=== PATIENT | male | born 1945 | race Caucasian/White ===

== ENCOUNTER 2016-10-02 13:08 | Inpatient (IN) | payer MEDICARE, OTHER ==
[~2016-10-02] VITALS: Ht 177.8 cm; Wt 131.4 kg
[~2016-10-02 13:08] MED LIST: /ADVA50050; /AUGM875TA; /ESOM40CA; ADV250INH INH; CIPR500T89 PO; COMBAER6 INH; HYDR-3716 PO; IBUP800T23 PO; LIPI20TA; LOSA50TA21 PO; MECL25TA2; PRAV40TA2 PO; PROV90AE; TOPI50TA; TRAM300T9 PO; XANA1TAB2 PO
[2016-10-02] MEDS ORDERED: PHENYLEPHRINE 0.25% NASAL SPR 15 ML As Ordered ONE (13:33)
[2016-10-02 15:19] LABS: BASO % 0.5 % (0.0-1.0); EOS % 0.8 % (0.0-3.0); LARGE UNSTAINED CELL # 0.2 K/mm3 (0.0-0.4); LARGE UNSTAINED CELL % 2.4 % (0.0-4.0); LYMPH # 1.7 K/mm3 (1.5-4.5); LYMPH % 24.6 % (24.0-44.0); MEAN CORPUSCULAR HEMOGLOBIN 26.2 pg (27.0-33.0); MEAN CORPUSCULAR VOLUME 82.1 fl (80.0-96.0); MONO # 0.4 K/mm3 (0.0-0.8); MONO % 5.9 % (0.0-5.0); NEUTROPHILS # 4.6 K/mm3 (1.8-7.7); NEUTROPHILS % 65.8 % (36.0-66.0); PLATELET COUNT, AUTOMATED 117 k/mm3 (150-450); RED CELL DISTRIBUTION WIDTH 13.2 % (11.5-14.5)
[2016-10-02] MEDS ORDERED: AUGMENTIN 875 MG TAB As Ordered ONE (16:05)
[2016-10-02] MEDS ORDERED: CEPHALEXIN 250 MG CAP As Ordered ONE (16:05)
[2016-10-02] MEDS ORDERED: IBUP80TA PO (16:26)
[2016-10-02 16:37] LABS: ANION GAP 9 MEQ/L (8-16); BLOOD UREA NITROGEN 19 MG/DL (7-18); CALCIUM LEVEL 8.4 MG/DL (8.8-10.2); CARBON DIOXIDE LEVEL 26 MEQ/L (21-32); CHLORIDE LEVEL 105 MEQ/L (98-107); CREATININE FOR GFR 1.06 MG/DL (0.70-1.30); GLOMERULAR FILTRATION RATE > 60.0 (>49); GLUCOSE, FASTING 122 MG/DL (80-110); POTASSIUM SERUM 4.3 MEQ/L (3.5-5.1); SODIUM LEVEL 140 MEQ/L (136-145)
[2016-10-02 17:09] VITALS: BP 126/78
[2016-10-02] MEDS ORDERED: NS 1,000 ML IV SCH (17:54)
[2016-10-02] MEDS ORDERED: ONDANSETRON 4MG/2ML VIAL (J2405) IV PRN (18:00)
[2016-10-02] MEDS ORDERED: SODIUM CHLORIDE NASAL 0.65% SPRAY BTL (OCEAN) PRN (18:00)
--- NOTE | 2016-10-02 19:58 | EDDOCDS ---
Physician Documentation [facility] Name: Ken Perez Age: 71 yrs Sex: Male : 1945 Arrival Date: 10/02/2016 Time: 13:08 Bed 5 Private MD: Fito Parson Disposition: 10/02/16 15:45 Hospitalization ordered by Hari Turcios for Inpatient Admission. Preliminary diagnosis are Epistaxis, Thrombocytopenia, unspecified. - Bed requested for 4 [place]. - Status is Inpatient Admission. kiara - Condition is Stable. - Problem is new. - Symptoms have improved. Historical: - Allergies: Topamax; Meclizine; - Home Meds: 1. Advair Diskus 250-50 mcg/dose Inhl dsdv 1 puff 2 times per day (Last dose: 09/25/2016) 2. Combivent 18-103 mcg/actuation Inhl aero as needed 3. ibuprofen 800 mg Oral tab 1 tab 3 times per day 4. losartan-hydrochlorothiazide oral 1 tab once daily (Last dose: 10/01/2016) 5. pravastatin 40 mg oral tab 1 tab once daily (Last dose: 10/01/2016) 6. Vicodin 7.5/750 Oral 1 tab as needed 7. Xanax 1 mg Oral tab 1 tab 4 times a day as needed 8. tramadol 300 mg Oral BP17 as needed (Last dose: 09/25/2016) - PMHx: Asthma; Depression; Hypercholesterolemia; Hypertension; Lupus anticoagulant; Low platelets; - PSHx: Left knee meniscus repair; Inguinal hernia repair; - Social history: Smoking status: Patient states former smoker of tobacco. No barriers to communication noted, The patient speaks fluent Iraqi. - Family history: Not pertinent. - : The pt / caregiver states he / she is not on anticoagulants. Home medication list is obtained from the patient. - Exposure Risk Screening:: None identified. Vital Signs: 10/02 13:10 BP 162 / 93; Pulse 86; Resp 18 S; Temp 96.2(T); Pulse Ox 98% on R/A; Weight 129.27 kg / gr2 284.99 lbs (R); Height 5 ft. 10 in. (177.80 cm) (R); Pain 3/10; 15:30 BP 146 / 89; Pulse 82; Resp 16; Pulse Ox 97% on R/A; jo3 18:20 BP 140 / 68; Pulse 85; Resp 16; Temp 98.0(TE); Pulse Ox 97% on R/A; Pain 0/10; dem1 19:34 BP 141 / 67; Pulse 81; Resp 18; Temp 98; Pulse Ox 97% on R/A; Pain 0/10; ld5 13:10 Body Mass Index 40.89 (129.27 kg, 177.80 cm) gr2 MDM: 13:51 IV Saline Lock ordered. fg 13:53 CBC with Diff Ordered. EDMS 14:58 [facility] Agreement was scanned into [employer] and attached to record. jp5 14:58 Financial registration complete. jp5 15:42 Cephalexin 500 mg PO once ordered. fg 15:45 BED REQUEST+ADM ordered. EDMS 16:10 Amoxicillin-Clavulanate 875 mg 1 tabs PO once ordered. jo3 16:20 Type & Screen Ordered. EDMS 16:20 Platelets Pheresis Ordered. EDMS 16:20 Basic Metabolic Profile Ordered. EDMS 17:36 ANTIBODY IDENTIFICATION Ordered. EDMS 17:59 Admission / Observation Status ordered. EDMS Administered Medications: 16:10 CANCELLED (Other Intervention Used): Amoxicillin-Clavulanate 500 mg 1 tabs PO once jo3 16:12 Drug: Cephalexin 500 mg [cephalexin 250 mg capsule (2 caps)] Route: PO; jo3 16:12 Drug: Amoxicillin-Clavulanate 1 tabs [amoxicillin 875 mg-potassium clavulanate 125 mg jo3 tablet (1 tabs)] Route: PO; Signatures: Dispatcher [employer] EDSD Jason Montague RN RN dwg Newman, Jill New, RN RN jan Helmerci, Jennifer, RN RN jo3 Price, Jennalee jp5 Beth Durant MD MD fg Andrews, Steven, RN RN sa The chart was reviewed and I authenticate all verbal orders and agree with the evaluation and treatment provided.Corrections: (The following items were deleted from the chart) 16:10 15:59 Amoxicillin-Clavulanate 500 mg 1 tabs PO once ordered. fg jo3 16:10 16:10 Amoxicillin-Clavulanate 500 mg 1 tabs PO once ordered. jo3 jo3 Attachments: 14:58 [facility] Payment Agreement jp5 MTDD
--- NOTE | 2016-10-02 19:58 | EDDOCDS ---
Nurse's Notes [facility] Name: Ken Perez Age: 71 yrs Sex: Male : 1945 Arrival Date: 10/02/2016 Time: 13:08 Bed 5 Private MD: Fito Parson Diagnosis: Epistaxis;Thrombocytopenia, unspecified Presentation: 10/02 13:15 Presenting complaint: Patient states: Nose bleed since 12 noon, no trauma. Adult Sepsis dwg Screening: The patient does not have new or worsening altered mentation. Patient's respiratory rate is less than 22. Systolic blood pressure is greater than 100. Patient has a qSOFA score of 0- Negative Sepsis Screen. Suicide/Homicide risk assessment- the patient denies having any suicidal and/or homicidal ideations and does not present with any other emotional, behavioral or mental health complaints. Status: Patient is not a vehicle service attendant or dependent. Transition of care: patient was not received from another setting of care. 13:15 Acuity: JENNIFER Level 3 dwg 13:15 Method Of Arrival: Wheelchair dw Triage Assessment: 13:20 General: Appears in no apparent distress. Pain: Denies pain. dwg Historical: - Allergies: Topamax; Meclizine; - Home Meds: 1. Advair Diskus 250-50 mcg/dose Inhl dsdv 1 puff 2 times per day (Last dose: 09/25/2016) 2. Combivent 18-103 mcg/actuation Inhl aero as needed 3. ibuprofen 800 mg Oral tab 1 tab 3 times per day 4. losartan-hydrochlorothiazide oral 1 tab once daily (Last dose: 10/01/2016) 5. pravastatin 40 mg oral tab 1 tab once daily (Last dose: 10/01/2016) 6. Vicodin 7.5/750 Oral 1 tab as needed 7. Xanax 1 mg Oral tab 1 tab 4 times a day as needed 8. tramadol 300 mg Oral BP17 as needed (Last dose: 09/25/2016) - PMHx: Asthma; Depression; Hypercholesterolemia; Hypertension; Lupus anticoagulant; Low platelets; - PSHx: Left knee meniscus repair; Inguinal hernia repair; - Social history: Smoking status: Patient states former smoker of tobacco. No barriers to communication noted, The patient speaks fluent Bengali. - Family history: Not pertinent. - : The pt / caregiver states he / she is not on anticoagulants. Home medication list is obtained from the patient. - Exposure Risk Screening:: None identified. Screenin:43 Screening information is obtained from the patient. Fall risk: No risks identified. jo3 Assistance ADL's: requires no assistance with activities of daily living. Abuse/DV Screen: The patient / caregiver reports he/she is: not in a situation that causes fear, pain or injury. Nutritional screening: No deficits noted. Advance Directives: There is no active DNR order. home support is adequate. Assessment: 13:41 General: Appears in no apparent distress, comfortable, obese, well groomed, Behavior is jo3 appropriate for age, cooperative, pleasant. Neurological: Level of Consciousness is awake, alert, Oriented to person, place, time. EENT: pt presents holding nose with large amount of paper towel. Replaced paper towel with gauze. Trickle of blood noted to left nares. Pressure applied by this expert medical writer and blood visualized at back of throat . Respiratory: Airway is patent Respiratory effort is even, unlabored. Derm: Skin is pink, warm & dry. 14:30 Reassessment: Patient appears in no apparent distress at this time. Patient states jo3 symptoms have improved. Blood visualized in throat. Appears better but not resolved. Provider notified . 15:25 Reassessment: Patient appears in no apparent distress at this time. Continued jo3 visualization of blood in throat. Awaiting disposition at this time. Aware of plan of care . 16:40 General: Appears in no apparent distress, comfortable, Behavior is appropriate for age, jo3 cooperative, pleasant. Neurological: Level of Consciousness is awake, alert, Oriented to person, place, time. EENT: Nares rocket in place to left nares. Scant blood noted when throat visualized. Pt reports that bleeding feels like it is improving. Respiratory: Airway is patent Respiratory effort is even, unlabored. Derm: Skin is pink, warm & dry. 17:40 Reassessment: Patient appears in no apparent distress at this time. Pt states that he jo3 had small amount of blood from right nares when he ambulated to bathroom. No blood noted at this time. Continuing to monitor . 19:15 General: Appears in no apparent distress, comfortable, Behavior is appropriate for age, jo3 cooperative, pleasant. General: Awaiting admission to medical floor. Aware of plan of care. Family at bedside . Neurological: Level of Consciousness is awake, alert, Oriented to person, place, time. Respiratory: Airway is patent Respiratory effort is even, unlabored. Derm: Skin is pink, warm & dry. 19:34 General: Pt resting comfortably in bed. No apparent distress. Will continue to monitor. ld5 Vital Signs: 13:10 BP 162 / 93; Pulse 86; Resp 18 S; Temp 96.2(T); Pulse Ox 98% on R/A; Weight 129.27 kg gr2 (R); Height 5 ft. 10 in. (177.80 cm) (R); Pain 3/10; 15:30 BP 146 / 89; Pulse 82; Resp 16; Pulse Ox 97% on R/A; jo3 18:20 BP 140 / 68; Pulse 85; Resp 16; Temp 98.0(TE); Pulse Ox 97% on R/A; Pain 0/10; dem1 19:34 BP 141 / 67; Pulse 81; Resp 18; Temp 98; Pulse Ox 97% on R/A; Pain 0/10; ld5 13:10 Body Mass Index 40.89 (129.27 kg, 177.80 cm) gr2 Vitals: 13:10 Log In Time: October 02, 2016 at 13:10. gr2 13:10 RN notified that patient meets Red Flag criteria. gr2 ED Course: 13:10 Patient visited by Luis Pina. gr2 13:10 Fito Parson is Private Physician. gr2 13:10 Patient moved to Waiting gr2 13:14 Patient moved to 5 gr2 13:16 Triage Initiated dwg 13:26 Patient visited by Luis Pina. gr2 13:31 Bteh Durant MD is Attending Physician. fg 13:32 Patient visited by Beth Durant MD. fg 13:43 Patient visited by Denae Stuart RN. jo3 13:43 The patient / caregiver is instructed regarding the plan of care and ED course. jo3 14:16 CBC with Diff Sent. jo3 14:18 Patient visited by Michelle Rodríguez PCA. ct3 14:58 [facility] [place] was scanned into [employer] and attached to record. jp5 15:35 Patient visited by Michelle Rodríguez PCA. ct3 15:45 Tam Hari is Hospitalizing Provider. fg 15:47 Patient visited by Denae Stuart,BRENT. jo3 15:58 Patient visited by Denae Stuart,BRENT. jo3 16:20 Inserted saline lock: 20 gauge in right forearm. Labs drawn. (by ED staff). Sent per jo3 order to lab. 16:38 Platelets Pheresis Sent. ld5 16:38 Type & Screen Sent. ld5 18:15 Patient visited by Denae Stuart,BRENT. jo3 18:20 Patient visited by Alpesh Velásquez. dem1 19:16 Patient visited by Denae Stuart RN. jo3 19:20 No procedures done that require assistance. ld5 19:21 Patient visited by Eleanor Musa,BRENT. ld5 19:36 Patient visited by Eleanor Musa,BRENT. ld5 Administered Medications: 16:10 CANCELLED (Other Intervention Used): Amoxicillin-Clavulanate 500 mg 1 tabs PO once jo3 16:12 Drug: Cephalexin 500 mg [cephalexin 250 mg capsule (2 caps)] Route: PO; jo3 16:12 Drug: Amoxicillin-Clavulanate 1 tabs [amoxicillin 875 mg-potassium clavulanate 125 mg jo3 tablet (1 tabs)] Route: PO; Order Results: Lab Order: CBC with Diff; SPEC'M 10/02/16 14:52 Test: WHITE BLOOD COUNT; Value: 7.0; Range: 4.0-10.0; Units: K/mm3; Status: F Test: RED BLOOD COUNT; Value: 4.48; Range: 4.30-6.10; Units: M/mm3; Status: F Test: HEMOGLOBIN; Value: 11.8; Range: 14.0-18.0; Abnormal: Below low normal; Units: g/dl; Status: F Test: HEMATOCRIT; Value: 36.8; Range: 42.0-52.0; Abnormal: Below low normal; Units: %; Status: F Test: MEAN CORPUSCULAR VOLUME; Value: 82.1; Range: 80.0-96.0; Units: fl; Status: F Test: MEAN CORPUSCULAR HEMOGLOBIN; Value: 26.2; Range: 27.0-33.0; Abnormal: Below low normal; Units: pg; Status: F Test: MEAN CORPUSCULAR HGB CONC; Value: 32.0; Range: 32.0-36.5; Units: g/dl; Status: F Test: RED CELL DISTRIBUTION WIDTH; Value: 13.2; Range: 11.5-14.5; Units: %; Status: F Test: PLATELET COUNT, AUTOMATED; Value: 117; Range: 150-450; Abnormal: Below low normal; Units: k/mm3; Status: F Test: NEUTROPHILS %; Value: 65.8; Range: 36.0-66.0; Units: %; Status: F Test: LYMPH %; Value: 24.6; Range: 24.0-44.0; Units: %; Status: F Test: MONO %; Value: 5.9; Range: 0.0-5.0; Abnormal: Above high normal; Units: %; Status: F Test: EOS %; Value: 0.8; Range: 0.0-3.0; Units: %; Status: F Test: BASO %; Value: 0.5; Range: 0.0-1.0; Units: %; Status: F Test: LARGE UNSTAINED CELL %; Value: 2.4; Range: 0.0-4.0; Units: %; Status: F Test: NEUTROPHILS #; Value: 4.6; Range: 1.8-7.7; Units: K/mm3; Status: F Test: LYMPH #; Value: 1.7; Range: 1.5-4.5; Units: K/mm3; Status: F Test: MONO #; Value: 0.4; Range: 0.0-0.8; Units: K/mm3; Status: F Test: EOS #; Value: 0.0; Range: 0.0-0.50; Units: K/mm3; Status: F Test: BASO #; Value: 0.0; Range: 0.0-0.2; Units: K/mm3; Status: F Test: LARGE UNSTAINED CELL #; Value: 0.2; Range: 0.0-0.4; Units: K/mm3; Status: F Lab Order: Type & Screen; SPEC'M 10/02/16 16:36 Test: BLOOD TYPE; Value: O POS; Status: F Test: AB SCREEN (INDIRECT JOLIE)VIS; Value: POSITIVE; Status: F Test: AB SCREEN MAN TUBE; Value: NEGATIVE; Status: F Lab Order: Basic Metabolic Profile; SPEC'M 10/02/16 14:52 Test: GLUCOSE, FASTING; Value: 122; Range: 80-110; Abnormal: Above high normal; Units: MG/DL; Status: F Test: BLOOD UREA NITROGEN; Value: 19; Range: 7-18; Abnormal: Above high normal; Units: MG/DL; Status: F Test: CREATININE FOR GFR; Value: 1.06; Range: 0.70-1.30; Units: MG/DL; Status: F Test: GLOMERULAR FILTRATION RATE; Value: > 60.0; Range: >49; Status: F Test: SODIUM LEVEL; Value: 140; Range: 136-145; Units: MEQ/L; Status: F Test: POTASSIUM SERUM; Value: 4.3; Range: 3.5-5.1; Units: MEQ/L; Status: F Test: CHLORIDE LEVEL; Value: 105; Range: 98-107; Units: MEQ/L; Status: F Test: CARBON DIOXIDE LEVEL; Value: 26; Range: 21-32; Units: MEQ/L; Status: F Test: ANION GAP; Value: 9; Range: 8-16; Units: MEQ/L; Status: F Test: CALCIUM LEVEL; Value: 8.4; Range: 8.8-10.2; Abnormal: Below low normal; Units: MG/DL; Status: F Test Note: ; Units are mL/min/1.73 m2 Chronic Kidney Disease Staging per NKF: Stage I & II GFR >=60 Normal to Mildly Decreased Stage III GFR 30-59 Moderately Decreased Stage IV GFR 15-29 Severely Decreased Stage V GFR <15 Very Little GFR Left ESRD GFR <15 on METHODS TIME ANALYST Outcome: 15:45 Decision to Hospitalize by Provider. fg 19:21 No special radiology studies were completed. ld5 19:57 Patient left the ED. kiara Signatures: Jason Montague RN Tracie Spencer RN RN jan Helmerci, Jennifer, RN RN jo3 Dickerson, Laura, RN RN ld5 Michelle Rodríguez PCA ORNAMENTAL METAL FABRICATOR APPRENTICE ct3 Angelia Velásquezhilarypeter dem1 Nick Pinabeatricemaksim gr2 HalMary Beth jp5 Beth Durant MD MD fg Corrections: (The following items were deleted from the chart) 13:26 13:10 BP 162 / 93; Pulse 86bpm; Resp 18bpm; Spontaneous; Pulse Ox 98% RA; Temp 96.2F gr2 Tympanic; 129.27 kg Reported; Height 5 ft. 10 in. Reported; BMI: 40.8; Pain 3/10; gr2 15:58 15:05 Reassessment: Patient appears in no apparent distress at this time. Patient jo3 states feeling better. Patient states symptoms have improved. jo3 15:58 15:05 Reassessment: Awaiting disposition at this time. Aware of plan of care . jo3 jo3 MTDD
[2016-10-02 20:00] VITALS: BP 142/68
--- NOTE | 2016-10-02 20:55 | HPEPDOC ---
Medical History and Physical Date of Admission Oct 02, 2016 at 17:54 History and Physical PRIMARY CARE PROVIDER: ATTENDING: Rashaun Turcios MD CHIEF COMPLAINT: Epistaxis HISTORY OF PRESENT ILLNESS: This is a 63-year-old male past medical history of lupus anticoagulant, hypertension, hyperlipidemia, thrombocytopenia of unknown etiology, asthma, depression who presents with epistaxis. Patient's states that he was at his doctor's office when he started to have epistaxis from the left nausea. This started around 1:45 PM for which she decided to come to the ED. In the ED patient was noted to have recurrent epistaxis for which the left nostril was packed. The ED physician and spoken to the on-call ENT with recommendations for Augmentin, continue packing of the left nausea, rinsing of the right nostril, platelet transfusion, and they will see the patient if needed on an inpatient setting. The patient denies any use of aspirin, NSAIDs. Patient is not on any anticoagulation. Patient states he had an episode of epistaxis 3 years ago which resolved spontaneously. Has never been seen by ENT. PAST MEDICAL HISTORY: As per HPI PAST SURGICAL HISTORY: Left knee surgery, inguinal hernia repair SOCIAL HISTORY: History of tobacco abuse, however quit 14 years ago. No alcohol or illicit drug use. FAMILY HISTORY: Noncontributory ALLERGIES: Please see below. REVIEW OF SYSTEMS: HEENT: Denies sore throat/headache CARDIOVASCULAR: Denies chest pain/palpitations RESPIRATORY: No shortness of breath/cough GASTROINTESTINAL: denies nausea/vomiting GENITOURINARY: Denies dysuria/urinary urgency. MUSCULOSKELETAL: Denies myalgias/arthralgias NEUROLOGICAL: Denies any focal weakness Rest of ROS negative. HOME MEDICATIONS: Please see below. PHYSICAL EXAMINATION: Vitals: (see below) General: No acute distress, laying comfortably in bed. HEENT: Moist mucous membranes. Left nostril with packing. Right nostril with some dried blood. No active bleeding noted. Neck: No JVD or lymphadenopathy Cardiac: RRR, No murmurs Pulm: Clear to auscultation b/l. No wheezing, rhonchi Abd: NT/ND + BS Ext: No edema or cyanosis LABORATORY DATA: See below. IMAGING: MICROBIOLOGY: Please see below. ASSESSMENT/PLAN: Recurrent epistaxis- patient states she's had a prior episode 3 years ago however is never seen an ENT. The patient did have packing of the left nostril on the ED. ED physician had spoken to the on-call ENT who recommended Augmentin , platelet transfusion given the thrombocytopenia, nasal rinsing of the right nostril. Consider calling ENT for a formal inpatient consult tomorrow if the epistaxis recurs. History of lupus anticoagulant Asthma- as needed nebs Depression- continue home meds Hyperlipidemia- continue statin Hypertension- continue home meds Patient will be followed by Dr. Ricardo armenta on 10/03/16 at 7 AM. Vital Signs Blood pressure 162/93, heart rate 86, respiratory rate 16, afebrile, oxygen saturation 98% on room air Laboratory Data Labs 24H Laboratory Tests 2 10/02/16 14:52: Anion Gap 9, White Blood Count 7.0, Red Blood Count 4.48, Hemoglobin 11.8L, Hematocrit 36.8L, Mean Corpuscular Volume 82.1, Mean Corpuscular Hemoglobin 26.2L, Mean Corpuscular Hemoglobin Concent 32.0, Red Cell Distribution Width 13.2, Platelet Count 117L, Neutrophils (%) (Auto) 65.8, Lymphocytes (%) (Auto) 24.6, Monocytes (%) (Auto) 5.9H, Eosinophils (%) (Auto) 0.8, Basophils (%) (Auto ) 0.5, Neutrophils # (Auto) 4.6, Lymphocytes # (Auto) 1.7, Monocytes # (Auto) 0.4, Eosinophils # (Auto) 0.0, Basophils # (Auto) 0.0, Blood Urea Nitrogen 19H, Creatinine 1.06, Sodium Level 140, Potassium Level 4.3, Chloride Level 105, Carbon Dioxide Level 26, Calcium Level 8.4L, Glomerular Filtration Rate > 60.0, Large Unclassified Cells # 0.2, Large Unclassified Cells % 2.4 CBC/BMP Laboratory Tests 10/02/16 14:52 Calcium Level 8.4 L, Red Blood Count 4.48, Mean Corpuscular Volume 82.1, Mean Corpuscular Hemoglobin 26.2 L, Mean Corpuscular Hemoglobin Concent 32.0, Red Cell Distribution Width 13.2, Neutrophils (%) (Auto) 65.8, Lymphocytes (%) (Auto ) 24.6, Monocytes (%) (Auto) 5.9 H, Eosinophils (%) (Auto) 0.8, Basophils (%) ( Auto) 0.5, Neutrophils # (Auto) 4.6, Lymphocytes # (Auto) 1.7, Monocytes # (Auto ) 0.4, Eosinophils # (Auto) 0.0, Basophils # (Auto) 0.0 Home Medications Scheduled (Losartan Potassium/Hydroc 50-12.5 mg) 1 Tab Tab 1 TAB PO DAILY Pravastatin Sod (Pravastatin Sodium) 40 Mg Tab 40 MG PO QHS Scheduled PRN Acetaminophen/Hydrocodone (Hydrocodone/Acetaminophen 7.5-325 mg) 1 Tab Tab 1 TAB PO PRN PRN PRN PAIN Albuterol/Ipratropium (Combivent Respimat 20-100 Mcg/Act) 1 Aer Aer 1 PUFF INH PRN PRN PRN SHORTNESS OF BREATH Alprazolam (Xanax) 1 Mg Tab 1 MG PO QHS PRN PRN SLEEP CAN TAKE UP TO QID PRN Ibuprofen (Ibuprofen) 800 Mg Tab 800 MG PO TID PRN PRN PAIN Tramadol HCl (Tramadol HCl ER) 300 Mg Tab 300 MG PO PRN PRN PRN PAIN Allergies Coded Allergies: Codeine (Unverified Allergy, Unknown, HIVES, 10/02/16) Meclizine (Unverified Adverse Reaction, Intermediate, "TINGLES ALL OVER", N/V, 10/02/16) Topiramate (Unverified Adverse Reaction, Intermediate, "TINGLES ALL OVER" , 10/02/16) RASHAUN TURCIOS MD Oct 02, 2016 20:55
[2016-10-02 21:50] VITALS: BP 137/70
[2016-10-02 22:05] VITALS: BP 145/67
[2016-10-02 22:40] VITALS: BP 143/67
[2016-10-02] MEDS ORDERED: diphenhydrAMINE 50 MG CAP PO ONE (23:00)
--- NOTE | 2016-10-02 23:23 | IPNPDOC ---
Text Note Date of Service The patient was seen on 10/02/16. NOTE Subjective: Patient is a 71-year-old male who is admitted this evening with thrombocytopenia and epistaxis and was receiving platelets. I was called to the unit this evening due to patient developing a rash and hives after getting most of a unit of platelets. His nurse said that the patient got most of the unit of platelets and then developed a rash and hives over his upper body. Patient says that the hives itch. He denies having any facial swelling, difficulty swallowing , shortness of breath or difficulty breathing. Objective: Vitals: Temperature 98.2, heart rate 87, respiratory rate 20, blood pressure 143 /67, pulse ox 96% on room air Gen.: Patient awake, verbal and able to answer questions appropriately. He does not appear to be in any acute distress Lungs: Clear to auscultation bilaterally. No wheezes, rales or rhonchi Integumentary: Urticaria present over upper chest, upper back, upper extremities and face Assessment / Plan: #1: Allergic reaction / urticaria: Patient developed urticaria after receiving most of a unit of platelets. Patient is in no acute distress, not having any difficulty breathing, facial swelling. Patient will not be given remainder of the unit of platelets. Patient given 50 mg of oral Benadryl. Patient and nurse both made aware to monitor for worsening of symptoms, shortness of breath or difficulty breathing. My preceptor for this patient encounter was physically present in the building during the encounter and was fully available. As needed, all aspects of the patient interview, examination, medical decision making process, and medical care plan development were reviewed and approved by the preceptor. Preceptor is aware and concurs with the plan as stated in the body of this note and will attest to such by his/her cosignature. VS,Fishbone, I+O VS, Fishbone, I+O Laboratory Tests 10/02/16 14:52 Calcium Level 8.4 L, Red Blood Count 4.48, Mean Corpuscular Volume 82.1, Mean Corpuscular Hemoglobin 26.2 L, Mean Corpuscular Hemoglobin Concent 32.0, Red Cell Distribution Width 13.2, Neutrophils (%) (Auto) 65.8, Lymphocytes (%) (Auto ) 24.6, Monocytes (%) (Auto) 5.9 H, Eosinophils (%) (Auto) 0.8, Basophils (%) ( Auto) 0.5, Neutrophils # (Auto) 4.6, Lymphocytes # (Auto) 1.7, Monocytes # (Auto ) 0.4, Eosinophils # (Auto) 0.0, Basophils # (Auto) 0.0 Vital Signs Date Time Temp Pulse Resp B/P Pulse Ox O2 Delivery O2 Flow Rate FiO2 10/02/16 22:40 98.2 87 20 143/67 96 Room Air TIFFANIE YEBOAH DO Oct 02, 2016 23:23
[2016-10-02 23:40] VITALS: BP 145/74
[2016-10-03 00:27] LABS: MEAN CORPUSCULAR HEMOGLOBIN 26.6 pg (27.0-33.0); MEAN CORPUSCULAR HGB CONC 32.1 g/dl (32.0-36.5); MEAN CORPUSCULAR VOLUME 82.8 fl (80.0-96.0); PLATELET COUNT, AUTOMATED 138 k/mm3 (150-450); RED CELL DISTRIBUTION WIDTH 13.6 % (11.5-14.5); WHITE BLOOD COUNT 15.4 K/mm3 (4.0-10.0)
[2016-10-03] MEDS: ALPRAZolam 0.5 MG TAB PO PRN ×2 (01:03→20:42)
[2016-10-03] MEDS: PRAVASTATIN 20 MG TAB PO SCH ×2 (01:03→20:41)
[2016-10-03 01:06] LABS: BASO # 0.1 K/mm3 (0.0-0.2); BASO % 0.5 % (0.0-1.0); EOS # 0.1 K/mm3 (0.0-0.50); EOS % 0.9 % (0.0-3.0); LARGE UNSTAINED CELL # 0.3 K/mm3 (0.0-0.4); LARGE UNSTAINED CELL % 2.3 % (0.0-4.0); LYMPH # 3.4 K/mm3 (1.5-4.5); LYMPH % 24.2 % (24.0-44.0); MONO # 0.7 K/mm3 (0.0-0.8); NEUTROPHILS # 9.4 K/mm3 (1.8-7.7); NEUTROPHILS % 67.2 % (36.0-66.0)
[2016-10-03] MEDS: ACETAMINOPHEN TAB 650MG DOSE (2X325MG) PO PRN ×3 (01:58→20:41)
[2016-10-03 02:00] VITALS: BP 158/70
[2016-10-03 06:45] VITALS: BP 164/74
[2016-10-03 09:17] LABS: ANION GAP 9 MEQ/L (8-16); BLOOD UREA NITROGEN 30 MG/DL (7-18); CALCIUM LEVEL 8.5 MG/DL (8.8-10.2); CARBON DIOXIDE LEVEL 25 MEQ/L (21-32); CHLORIDE LEVEL 107 MEQ/L (98-107); CREATININE FOR GFR 0.92 MG/DL (0.70-1.30); GLOMERULAR FILTRATION RATE > 60.0 (>49); GLUCOSE, FASTING 137 MG/DL (80-110); POTASSIUM SERUM 3.9 MEQ/L (3.5-5.1); SODIUM LEVEL 141 MEQ/L (136-145)
[2016-10-03 09:19] LABS: MEAN CORPUSCULAR HEMOGLOBIN 26.4 pg (27.0-33.0); MEAN CORPUSCULAR HGB CONC 32.1 g/dl (32.0-36.5); RED CELL DISTRIBUTION WIDTH 13.4 % (11.5-14.5); WHITE BLOOD COUNT 9.6 K/mm3 (4.0-10.0)
[2016-10-03] MEDS: AUGMENTIN 875 MG TAB PO SCH ×2 (09:39→20:42)
[2016-10-03 10:00] VITALS: BP 148/70
--- NOTE | 2016-10-03 12:54 | IPN ---
DATE: 10/03/2016 SUBJECTIVE: The patient tells me that he is feeling better. He is still having some dripping of blood from his right nare, although his left nare is packed. He tells me that his hives have resolved and he has no other complaints other than feeling tired. OBJECTIVE: VITAL SIGNS: Temperature 98, pulse 98, respiratory rate 17, blood pressure 164/74, oxygen saturation 97% on room air. GENERAL: He is an elderly obese man who sits up to greet me as I enter the room. He is in no distress. The patient is accompanied by his daughter who is visibly anxious. HEENT: His left nare is packed with a serosanguineous stained dressing with a drain in place. No active bleeding noticed on the right or down the back of his throat. He has moist mucous membranes. No elevation of CVP. CARDIOVASCULAR: S1, S2, regular. RESPIRATORY EXAM: Clear. ABDOMINAL EXAM: Obese. EXTREMITIES: No clubbing, cyanosis or edema. LABORATORY STUDIES: WBC 9.6, hemoglobin 10.3 - stable, hematocrit 32, platelet count 147. Chemistry panel: Sodium 141, potassium 3.9, chloride 107, bicarbonate 25, BUN 30, creatinine 1.9. No imaging. ASSESSMENT AND PLAN: This is a 71-year-old man with recurrent bouts of epistaxis. PROBLEMS: 1. Epistaxis. The patient has had several recurrent bouts over the last several years, but this is the worst. He did have a subtle drop in his H and H. He does have some dark tarry stools, likely from digested blood as his BUN is elevated as well. At this time, it is unclear if he still has any active bleeding. He does report some dripping from the right nare. I have spoken to ENT and placed a consult to Dr. Farhan Zavala who will see the patient later today. As per ENT recommendations, the patient is on Augmentin and did receive platelets overnight. 2. Urticaria. The patient did have hives and urticaria secondary to platelet transfusion. He received Benadryl and this is all spontaneously resolved at this time. 3. History of asthma. The patient is on nebulizers as needed. 4. History of depression. He is on his home medication. 5. Dyslipidemia. He is on a statin. 6. Hypertension. He is on his home medication. 7. History of lupus anticoagulant. Does not appear to be hypercoagulable at all. 8. Insomnia. The patient is being provided with Xanax 1 mg at bedtime as needed sleep. Pending ENT evaluation, the patient may be stable for discharge as early as tomorrow should he have no further bleeding.
[2016-10-03 14:00] VITALS: BP 161/80
[2016-10-03 18:00] VITALS: BP 154/78
[2016-10-03 20:40] VITALS: BP 165/84
[2016-10-04 02:00] VITALS: BP 169/77
[2016-10-04 05:15] VITALS: BP 161/80
[2016-10-04 06:41] LABS: MEAN CORPUSCULAR HEMOGLOBIN 26.7 pg (27.0-33.0); MEAN CORPUSCULAR HGB CONC 32.1 g/dl (32.0-36.5); RED CELL DISTRIBUTION WIDTH 13.5 % (11.5-14.5); WHITE BLOOD COUNT 11.3 K/mm3 (4.0-10.0)
[2016-10-04 06:55] LABS: ANION GAP 8 MEQ/L (8-16); BLOOD UREA NITROGEN 15 MG/DL (7-18); CALCIUM LEVEL 8.8 MG/DL (8.8-10.2); CARBON DIOXIDE LEVEL 26 MEQ/L (21-32); CHLORIDE LEVEL 106 MEQ/L (98-107); CREATININE FOR GFR 0.96 MG/DL (0.70-1.30); GLOMERULAR FILTRATION RATE > 60.0 (>49); GLUCOSE, FASTING 131 MG/DL (80-110); POTASSIUM SERUM 4.2 MEQ/L (3.5-5.1); SODIUM LEVEL 140 MEQ/L (136-145)
[2016-10-04] MEDS ORDERED: PREVNAR 13 VACCINE SYRINGE (CPT CODE:90670) IM ONE (09:00)
[2016-10-04] MEDS ORDERED: CALCIUM CARBONATE 500 MG CHEW U/D PO PRN (09:30)
[2016-10-04 10:00] VITALS: BP 142/60
[2016-10-04] MEDS ORDERED: ENTER DRUG NAME HERE (PATIENT'S OWN MED) PO PRN (10:00)
[2016-10-04] MEDS: ACETAMINOPHEN TAB 650MG DOSE (2X325MG) PO PRN ×2 (10:13→18:34)
[2016-10-04] MEDS: AUGMENTIN 875 MG TAB PO SCH ×2 (10:13→20:18)
--- NOTE | 2016-10-04 11:49 | IPNPDOC ---
Date Seen The patient was seen on 10/04/16. Progress Note SUBJECTIVE: The patient tells me that he is feeling well he denies any further bleeding he denies chest pain shortness of breath nausea vomiting or chills OBJECTIVE PHYSICAL EXAMINATION: VITAL SIGNS: MAXIMUM TEMPERATURE 100.6 Please see below. GENERAL: Obese disheveled man lying in bed resting peacefully susceptibly greatly does not appear to be in any acute distress HEENT: Left naris packed with serosanguineous stained dressing and drain is in place otherwise cranial nerves are grossly intact CARDIOVASCULAR: 1 S2 regular. RESPIRATORY: Clear Auscultation. ABDOMINAL: Obese bowel sounds present abdomen soft EXTREMITIES: No clubbing cyanosis or edema LABORATORY DATA: Downtrending H&H Please see below. MICROBIOLOGY: Please see below. IMAGING: No new imaging DVT prophylaxis ordered?: Sequentials teds early ambulation no pharmacological agents secondary to recent bleeding ASSESSMENT AND PLAN: This is a 71-year-old man with recurrent bouts of epistaxis 1. Epistaxis: ENT's help is greatly appreciated the do not appreciate active bleeding we will attempt to take his drain out on Thursday but wish to remain inpatient for close monitoring until then. His H&H is downtrending but relatively stable we'll simply monitor for now he did have some dark tarry stools earlier likely from digestive blood as he did have an elevated BUN is well. The patient has no indication for further platelet transfusion 2. Urticaria: Secondary to platelet transfusion resolved with Benadryl. 3. History of asthma: The patient is on nebulizers as needed. 4. Anxiety: The patient is on his home Xanax 5. Gastroesophageal reflux disease: The patient is on Tums as needed 6. Dyslipidemia: The patient is on Pravachol. 7. Chronic pain: The patient is able to take his home Ultram extended release 8. Lupus anticoagulant: No active palpitations noted at this time DISPOSITION: Patient will have his packing removed by ENT on Thursday following that we'll reevaluate his need to remain in hospital. VS, I&O, 24H, Fishbone Vital Signs/I&O Vital Signs Date Time Temp Pulse Resp B/P Pulse Ox O2 Delivery O2 Flow Rate FiO2 10/04/16 11:09 Room Air 10/04/16 10:00 99.2 95 20 142/60 95 I&O- Last 24 Hours up to 6 AM 10/04/16 06:00 Intake Total 3100 ml Output Total 1475 ml Balance 1625 ml Laboratory Data 24H LABS Laboratory Tests 2 10/04/16 05:55: Anion Gap 8, Blood Urea Nitrogen 15, Creatinine 0.96, Sodium Level 140, Potassium Level 4.2, Chloride Level 106, Carbon Dioxide Level 26, Calcium Level 8.8, Glomerular Filtration Rate > 60.0 CBC/BMP Laboratory Tests 10/04/16 05:55 Calcium Level 8.8, Red Blood Count 3.46 L, Mean Corpuscular Volume 83.0, Mean Corpuscular Hemoglobin 26.7 L, Mean Corpuscular Hemoglobin Concent 32.1, Red Cell Distribution Width 13.5 ROBIN HUYNH MD Oct 04, 2016 11:49
[2016-10-04] MEDS: traMADol ER 100MG TABLET (ULTRAM ER) PO PRN (11:53)
[2016-10-04 13:55] VITALS: BP 143/72
--- NOTE | 2016-10-04 14:41 | REP ---
CHEST PA AND LATERAL: 10/04/2016. Comparison: 02/03/2016, 01/21/2015 portable chest. Clinical history: Possible pneumonia. Findings: Two views show the lungs well inflated without infiltrate, effusion, atelectasis or mass. The heart is not enlarged. There is no vascular redistribution or edema. The aorta is tortuous but normal for age. Airway intact. Bony thorax without acute compression deformity with marginal osteophytes. Impression: 1. There is no acute cardiopulmonary change. Signed by Lucio Sierra MD 10/04/2016 07:40 P
[2016-10-04 18:00] VITALS: BP 146/76
[2016-10-04] MEDS: ALPRAZolam 0.5 MG TAB PO PRN (20:18)
[2016-10-04] MEDS: PRAVASTATIN 20 MG TAB PO SCH (20:18)
--- NOTE | 2016-10-04 20:57 | EDDOCDS ---
Physician Documentation [facility] Name: Ken Perez Age: 71 yrs Sex: Male : 1945 Arrival Date: 10/02/2016 Time: 13:08 Bed 5 Private MD: Fito Parson Disposition: 10/02/16 15:45 Hospitalization ordered by Hari Turcios for Inpatient Admission. Preliminary diagnosis are Epistaxis, Thrombocytopenia, unspecified. - Bed requested for 4 [place]. - Status is Inpatient Admission. kiara - Condition is Stable. - Problem is new. - Symptoms have improved. Historical: - Allergies: Topamax; Meclizine; - Home Meds: 1. Advair Diskus 250-50 mcg/dose Inhl dsdv 1 puff 2 times per day (Last dose: 09/25/2016) 2. Combivent 18-103 mcg/actuation Inhl aero as needed 3. ibuprofen 800 mg Oral tab 1 tab 3 times per day 4. losartan-hydrochlorothiazide oral 1 tab once daily (Last dose: 10/01/2016) 5. pravastatin 40 mg oral tab 1 tab once daily (Last dose: 10/01/2016) 6. Vicodin 7.5/750 Oral 1 tab as needed 7. Xanax 1 mg Oral tab 1 tab 4 times a day as needed 8. tramadol 300 mg Oral BP17 as needed (Last dose: 09/25/2016) - PMHx: Asthma; Depression; Hypercholesterolemia; Hypertension; Lupus anticoagulant; Low platelets; - PSHx: Left knee meniscus repair; Inguinal hernia repair; - Social history: Smoking status: Patient states former smoker of tobacco. No barriers to communication noted, The patient speaks fluent Amharic. - Family history: Not pertinent. - : The pt / caregiver states he / she is not on anticoagulants. Home medication list is obtained from the patient. - Exposure Risk Screening:: None identified. Vital Signs: 10/02 13:10 BP 162 / 93; Pulse 86; Resp 18 S; Temp 96.2(T); Pulse Ox 98% on R/A; Weight 129.27 kg / gr2 284.99 lbs (R); Height 5 ft. 10 in. (177.80 cm) (R); Pain 3/10; 15:30 BP 146 / 89; Pulse 82; Resp 16; Pulse Ox 97% on R/A; jo3 18:20 BP 140 / 68; Pulse 85; Resp 16; Temp 98.0(TE); Pulse Ox 97% on R/A; Pain 0/10; dem1 19:34 BP 141 / 67; Pulse 81; Resp 18; Temp 98; Pulse Ox 97% on R/A; Pain 0/10; ld5 13:10 Body Mass Index 40.89 (129.27 kg, 177.80 cm) gr2 MDM: 13:51 IV Saline Lock ordered. fg 13:53 CBC with Diff Ordered. EDMS 14:58 [facility] Payment Agreement was scanned into Outline and attached to record. jp5 14:58 Financial registration complete. jp5 15:42 Cephalexin 500 mg PO once ordered. fg 15:45 BED REQUEST+ADM ordered. EDMS 16:10 Amoxicillin-Clavulanate 875 mg 1 tabs PO once ordered. jo3 16:20 Type & Screen Ordered. EDMS 16:20 Platelets Pheresis Ordered. EDMS 16:20 Basic Metabolic Profile Ordered. EDMS 17:36 ANTIBODY IDENTIFICATION Ordered. EDMS 17:59 Admission / Observation Status ordered. EDMS 10/03 12:37 T-Sheet-- Draft Copy was scanned into Outline and attached to record. gb Administered Medications: 10/02 16:10 CANCELLED (Other Intervention Used): Amoxicillin-Clavulanate 500 mg 1 tabs PO once jo3 16:12 Drug: Cephalexin 500 mg [cephalexin 250 mg capsule (2 caps)] Route: PO; jo3 16:12 Drug: Amoxicillin-Clavulanate 1 tabs [amoxicillin 875 mg-potassium clavulanate 125 mg jo3 tablet (1 tabs)] Route: PO; Signatures: Dispatcher [employer] EDMS Jason Montague RN RN dwg Newman, Jill New, RN RN jan Barnhardt, Gloria, Roderick Reg Denae Morataya RN RN jo3 Price, Jennalee jp5 Beth Durant MD MD fg Andrews, Steven, RN RN sa The chart was reviewed and I authenticate all verbal orders and agree with the evaluation and treatment provided.Corrections: (The following items were deleted from the chart) 16:10 15:59 Amoxicillin-Clavulanate 500 mg 1 tabs PO once ordered. fg jo3 16:10 16:10 Amoxicillin-Clavulanate 500 mg 1 tabs PO once ordered. jo3 jo3 Attachments: 14:58 [facility] Payment Agreement jp5 10/03 12:37 T-Sheet-- Draft Copy gb Chart Complete MTDD
--- NOTE | 2016-10-04 20:57 | EDDOCDS ---
Physician Documentation [facility] Name: Ken Perez Age: 71 yrs Sex: Male : 1945 Arrival Date: 10/02/2016 Time: 13:08 Bed 5 Private MD: Fito Parson Disposition: 10/02/16 15:45 Hospitalization ordered by Hari Turcios for Inpatient Admission. Preliminary diagnosis are Epistaxis, Thrombocytopenia, unspecified. - Bed requested for 4 [place]. - Status is Inpatient Admission. kiara - Condition is Stable. - Problem is new. - Symptoms have improved. Historical: - Allergies: Topamax; Meclizine; - Home Meds: 1. Advair Diskus 250-50 mcg/dose Inhl dsdv 1 puff 2 times per day (Last dose: 09/25/2016) 2. Combivent 18-103 mcg/actuation Inhl aero as needed 3. ibuprofen 800 mg Oral tab 1 tab 3 times per day 4. losartan-hydrochlorothiazide oral 1 tab once daily (Last dose: 10/01/2016) 5. pravastatin 40 mg oral tab 1 tab once daily (Last dose: 10/01/2016) 6. Vicodin 7.5/750 Oral 1 tab as needed 7. Xanax 1 mg Oral tab 1 tab 4 times a day as needed 8. tramadol 300 mg Oral BP17 as needed (Last dose: 09/25/2016) - PMHx: Asthma; Depression; Hypercholesterolemia; Hypertension; Lupus anticoagulant; Low platelets; - PSHx: Left knee meniscus repair; Inguinal hernia repair; - Social history: Smoking status: Patient states former smoker of tobacco. No barriers to communication noted, The patient speaks fluent Mohawk. - Family history: Not pertinent. - : The pt / caregiver states he / she is not on anticoagulants. Home medication list is obtained from the patient. - Exposure Risk Screening:: None identified. Vital Signs: 10/02 13:10 BP 162 / 93; Pulse 86; Resp 18 S; Temp 96.2(T); Pulse Ox 98% on R/A; Weight 129.27 kg / gr2 284.99 lbs (R); Height 5 ft. 10 in. (177.80 cm) (R); Pain 3/10; 15:30 BP 146 / 89; Pulse 82; Resp 16; Pulse Ox 97% on R/A; jo3 18:20 BP 140 / 68; Pulse 85; Resp 16; Temp 98.0(TE); Pulse Ox 97% on R/A; Pain 0/10; dem1 19:34 BP 141 / 67; Pulse 81; Resp 18; Temp 98; Pulse Ox 97% on R/A; Pain 0/10; ld5 13:10 Body Mass Index 40.89 (129.27 kg, 177.80 cm) gr2 MDM: 13:51 IV Saline Lock ordered. fg 13:53 CBC with Diff Ordered. EDMS 14:58 [facility] [place] Agreement was scanned into [employer] and attached to record. jp5 14:58 Financial registration complete. jp5 15:42 Cephalexin 500 mg PO once ordered. fg 15:45 BED REQUEST+ADM ordered. EDMS 16:10 Amoxicillin-Clavulanate 875 mg 1 tabs PO once ordered. jo3 16:20 Type & Screen Ordered. EDMS 16:20 Platelets Pheresis Ordered. EDMS 16:20 Basic Metabolic Profile Ordered. EDMS 17:36 ANTIBODY IDENTIFICATION Ordered. EDMS 17:59 Admission / Observation Status ordered. EDMS 10/03 12:37 T-Sheet-- Draft Copy was scanned into [employer] and attached to record. gb Administered Medications: 10/02 16:10 CANCELLED (Other Intervention Used): Amoxicillin-Clavulanate 500 mg 1 tabs PO once jo3 16:12 Drug: Cephalexin 500 mg [cephalexin 250 mg capsule (2 caps)] Route: PO; jo3 16:12 Drug: Amoxicillin-Clavulanate 1 tabs [amoxicillin 875 mg-potassium clavulanate 125 mg jo3 tablet (1 tabs)] Route: PO; Signatures: Dispatcher [employer] EDMS Jason Montague RN RN dwg Newman, Jill New, RN RN jan Barnhardt, Gloria, Roderick Reg Denae Morataya RN RN jo3 Price, Jennalee jp5 Beth Durant MD MD fg Andrews, Steven, RN RN sa The chart was reviewed and I authenticate all verbal orders and agree with the evaluation and treatment provided.Corrections: (The following items were deleted from the chart) 16:10 15:59 Amoxicillin-Clavulanate 500 mg 1 tabs PO once ordered. fg jo3 16:10 16:10 Amoxicillin-Clavulanate 500 mg 1 tabs PO once ordered. jo3 jo3 Attachments: 14:58 [facility] Payment Agreement jp5 10/03 12:37 T-Sheet-- Draft Copy gb Chart Complete MTDD
--- NOTE | 2016-10-04 20:58 | EDDOCDS ---
Nurse's Notes [facility] Name: Ken Perez Age: 71 yrs Sex: Male : 1945 Arrival Date: 10/02/2016 Time: 13:08 Bed 5 Private MD: Fito Parson Diagnosis: Epistaxis;Thrombocytopenia, unspecified Presentation: 10/02 13:15 Presenting complaint: Patient states: Nose bleed since 12 noon, no trauma. Adult Sepsis dwg Screening: The patient does not have new or worsening altered mentation. Patient's respiratory rate is less than 22. Systolic blood pressure is greater than 100. Patient has a qSOFA score of 0- Negative Sepsis Screen. Suicide/Homicide risk assessment- the patient denies having any suicidal and/or homicidal ideations and does not present with any other emotional, behavioral or mental health complaints. 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 Transition of care: patient was not received from another setting of care. 13:15 Acuity: JENNIFER Level 3 dwg 13:15 Method Of Arrival: Wheelchair dw Triage Assessment: 13:20 General: Appears in no apparent distress. Pain: Denies pain. dwg Historical: - Allergies: Topamax; Meclizine; - Home Meds: 1. Advair Diskus 250-50 mcg/dose Inhl dsdv 1 puff 2 times per day (Last dose: 09/25/2016) 2. Combivent 18-103 mcg/actuation Inhl aero as needed 3. ibuprofen 800 mg Oral tab 1 tab 3 times per day 4. losartan-hydrochlorothiazide oral 1 tab once daily (Last dose: 10/01/2016) 5. pravastatin 40 mg oral tab 1 tab once daily (Last dose: 10/01/2016) 6. Vicodin 7.5/750 Oral 1 tab as needed 7. Xanax 1 mg Oral tab 1 tab 4 times a day as needed 8. tramadol 300 mg Oral BP17 as needed (Last dose: 09/25/2016) - PMHx: Asthma; Depression; Hypercholesterolemia; Hypertension; Lupus anticoagulant; Low platelets; - PSHx: Left knee meniscus repair; Inguinal hernia repair; - Social history: Smoking status: Patient states former smoker of tobacco. No barriers to communication noted, The patient speaks fluent Wolof. - Family history: Not pertinent. - : The pt / caregiver states he / she is not on anticoagulants. Home medication list is obtained from the patient. - Exposure Risk Screening:: None identified. Screenin:43 Screening information is obtained from the patient. Fall risk: No risks identified. jo3 Assistance ADL's: requires no assistance with activities of daily living. Abuse/DV Screen: The patient / caregiver reports he/she is: not in a situation that causes fear, pain or injury. Nutritional screening: No deficits noted. Advance Directives: There is no active DNR order. home support is adequate. Assessment: 13:41 General: Appears in no apparent distress, comfortable, obese, well groomed, Behavior is jo3 appropriate for age, cooperative, pleasant. Neurological: Level of Consciousness is awake, alert, Oriented to person, place, time. EENT: pt presents holding nose with large amount of paper towel. Replaced paper towel with gauze. Trickle of blood noted to left nares. Pressure applied by this law writer and blood visualized at back of throat . Respiratory: Airway is patent Respiratory effort is even, unlabored. Derm: Skin is pink, warm & dry. 14:30 Reassessment: Patient appears in no apparent distress at this time. Patient states jo3 symptoms have improved. Blood visualized in throat. Appears better but not resolved. Provider notified . 15:25 Reassessment: Patient appears in no apparent distress at this time. Continued jo3 visualization of blood in throat. Awaiting disposition at this time. Aware of plan of care . 16:40 General: Appears in no apparent distress, comfortable, Behavior is appropriate for age, jo3 cooperative, pleasant. Neurological: Level of Consciousness is awake, alert, Oriented to person, place, time. EENT: Nares rocket in place to left nares. Scant blood noted when throat visualized. Pt reports that bleeding feels like it is improving. Respiratory: Airway is patent Respiratory effort is even, unlabored. Derm: Skin is pink, warm & dry. 17:40 Reassessment: Patient appears in no apparent distress at this time. Pt states that he jo3 had small amount of blood from right nares when he ambulated to bathroom. No blood noted at this time. Continuing to monitor . 19:15 General: Appears in no apparent distress, comfortable, Behavior is appropriate for age, jo3 cooperative, pleasant. General: Awaiting admission to medical floor. Aware of plan of care. Family at bedside . Neurological: Level of Consciousness is awake, alert, Oriented to person, place, time. Respiratory: Airway is patent Respiratory effort is even, unlabored. Derm: Skin is pink, warm & dry. 19:34 General: Pt resting comfortably in bed. No apparent distress. Will continue to monitor. ld5 Vital Signs: 13:10 BP 162 / 93; Pulse 86; Resp 18 S; Temp 96.2(T); Pulse Ox 98% on R/A; Weight 129.27 kg gr2 (R); Height 5 ft. 10 in. (177.80 cm) (R); Pain 3/10; 15:30 BP 146 / 89; Pulse 82; Resp 16; Pulse Ox 97% on R/A; jo3 18:20 BP 140 / 68; Pulse 85; Resp 16; Temp 98.0(TE); Pulse Ox 97% on R/A; Pain 0/10; dem1 19:34 BP 141 / 67; Pulse 81; Resp 18; Temp 98; Pulse Ox 97% on R/A; Pain 0/10; ld5 13:10 Body Mass Index 40.89 (129.27 kg, 177.80 cm) gr2 Vitals: 13:10 Log In Time: October 02, 2016 at 13:10. gr2 13:10 RN notified that patient meets Red Flag criteria. gr2 ED Course: 13:10 Patient visited by Luis Pina. gr2 13:10 Fito Parson is Private Physician. gr2 13:10 Patient moved to Waiting gr2 13:14 Patient moved to 5 gr2 13:16 Triage Initiated dwg 13:26 Patient visited by Luis Pina. gr2 13:31 Beth Durant MD is Attending Physician. fg 13:32 Patient visited by Beth Durant MD. fg 13:43 Patient visited by Denae Stuart RN. jo3 13:43 The patient / caregiver is instructed regarding the plan of care and ED course. jo3 14:16 CBC with Diff Sent. jo3 14:18 Patient visited by Michelle Rodríguez PCA. ct3 14:58 [facility] [place] was scanned into [employer] and attached to record. jp5 15:35 Patient visited by Michelle Rodríguez PCA. ct3 15:45 Tam Hari is Hospitalizing Provider. fg 15:47 Patient visited by Denae Stuart,BRENT. jo3 15:58 Patient visited by Denae Stuart,BRENT. jo3 16:20 Inserted saline lock: 20 gauge in right forearm. Labs drawn. (by ED staff). Sent per jo3 order to lab. 16:38 Platelets Pheresis Sent. ld5 16:38 Type & Screen Sent. ld5 18:15 Patient visited by Denae Stuart,BRENT. jo3 18:20 Patient visited by Alpesh Velásquez. dem1 19:16 Patient visited by Denae Stuart RN. jo3 19:20 No procedures done that require assistance. ld5 19:21 Patient visited by Eleanor Musa,BRENT. ld5 19:36 Patient visited by Eleanor Musa RN. ld5 10/03 12:37 T-Sheet-- Draft Copy was scanned into [employer] and attached to record. gb Administered Medications: 10/02 16:10 CANCELLED (Other Intervention Used): Amoxicillin-Clavulanate 500 mg 1 tabs PO once jo3 16:12 Drug: Cephalexin 500 mg [cephalexin 250 mg capsule (2 caps)] Route: PO; jo3 16:12 Drug: Amoxicillin-Clavulanate 1 tabs [amoxicillin 875 mg-potassium clavulanate 125 mg jo3 tablet (1 tabs)] Route: PO; Order Results: Lab Order: CBC with Diff; SPEC'M 10/02/16 14:52 Test: WHITE BLOOD COUNT; Value: 7.0; Range: 4.0-10.0; Units: K/mm3; Status: F Test: RED BLOOD COUNT; Value: 4.48; Range: 4.30-6.10; Units: M/mm3; Status: F Test: HEMOGLOBIN; Value: 11.8; Range: 14.0-18.0; Abnormal: Below low normal; Units: g/dl; Status: F Test: HEMATOCRIT; Value: 36.8; Range: 42.0-52.0; Abnormal: Below low normal; Units: %; Status: F Test: MEAN CORPUSCULAR VOLUME; Value: 82.1; Range: 80.0-96.0; Units: fl; Status: F Test: MEAN CORPUSCULAR HEMOGLOBIN; Value: 26.2; Range: 27.0-33.0; Abnormal: Below low normal; Units: pg; Status: F Test: MEAN CORPUSCULAR HGB CONC; Value: 32.0; Range: 32.0-36.5; Units: g/dl; Status: F Test: RED CELL DISTRIBUTION WIDTH; Value: 13.2; Range: 11.5-14.5; Units: %; Status: F Test: PLATELET COUNT, AUTOMATED; Value: 117; Range: 150-450; Abnormal: Below low normal; Units: k/mm3; Status: F Test: NEUTROPHILS %; Value: 65.8; Range: 36.0-66.0; Units: %; Status: F Test: LYMPH %; Value: 24.6; Range: 24.0-44.0; Units: %; Status: F Test: MONO %; Value: 5.9; Range: 0.0-5.0; Abnormal: Above high normal; Units: %; Status: F Test: EOS %; Value: 0.8; Range: 0.0-3.0; Units: %; Status: F Test: BASO %; Value: 0.5; Range: 0.0-1.0; Units: %; Status: F Test: LARGE UNSTAINED CELL %; Value: 2.4; Range: 0.0-4.0; Units: %; Status: F Test: NEUTROPHILS #; Value: 4.6; Range: 1.8-7.7; Units: K/mm3; Status: F Test: LYMPH #; Value: 1.7; Range: 1.5-4.5; Units: K/mm3; Status: F Test: MONO #; Value: 0.4; Range: 0.0-0.8; Units: K/mm3; Status: F Test: EOS #; Value: 0.0; Range: 0.0-0.50; Units: K/mm3; Status: F Test: BASO #; Value: 0.0; Range: 0.0-0.2; Units: K/mm3; Status: F Test: LARGE UNSTAINED CELL #; Value: 0.2; Range: 0.0-0.4; Units: K/mm3; Status: F Lab Order: Type & Screen; SPEC'M 10/02/16 16:36 Test: BLOOD TYPE; Value: O POS; Status: F Test: AB SCREEN (INDIRECT JOLIE)VIS; Value: POSITIVE; Status: F Test: AB SCREEN MAN TUBE; Value: NEGATIVE; Status: F Lab Order: Basic Metabolic Profile; SPEC'M 10/02/16 14:52 Test: GLUCOSE, FASTING; Value: 122; Range: 80-110; Abnormal: Above high normal; Units: MG/DL; Status: F Test: BLOOD UREA NITROGEN; Value: 19; Range: 7-18; Abnormal: Above high normal; Units: MG/DL; Status: F Test: CREATININE FOR GFR; Value: 1.06; Range: 0.70-1.30; Units: MG/DL; Status: F Test: GLOMERULAR FILTRATION RATE; Value: > 60.0; Range: >49; Status: F Test: SODIUM LEVEL; Value: 140; Range: 136-145; Units: MEQ/L; Status: F Test: POTASSIUM SERUM; Value: 4.3; Range: 3.5-5.1; Units: MEQ/L; Status: F Test: CHLORIDE LEVEL; Value: 105; Range: 98-107; Units: MEQ/L; Status: F Test: CARBON DIOXIDE LEVEL; Value: 26; Range: 21-32; Units: MEQ/L; Status: F Test: ANION GAP; Value: 9; Range: 8-16; Units: MEQ/L; Status: F Test: CALCIUM LEVEL; Value: 8.4; Range: 8.8-10.2; Abnormal: Below low normal; Units: MG/DL; Status: F Test Note: ; Units are mL/min/1.73 m2 Chronic Kidney Disease Staging per NKF: Stage I & II GFR >=60 Normal to Mildly Decreased Stage III GFR 30-59 Moderately Decreased Stage IV GFR 15-29 Severely Decreased Stage V GFR <15 Very Little GFR Left ESRD GFR <15 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 fg 19:21 No special radiology studies were completed. ld5 19:57 Patient left the ED. kiara Signatures: Jason Montague RN RN dwg Newman, Jill New, RN RN jan Barnhardt, Gloria, Reg Reg Denae Morataya RN RN jo3 Eleanro Musa RN RN ld5 Michelle Rodríguez, RESTAURANT RECRUITER RESTAURANT RECRUITER ct3 Alpesh Velásquez1 Luis Pina gr2 Mary Beth Hong jp5 Beth Durant MD MD fg Corrections: (The following items were deleted from the chart) 13:26 13:10 BP 162 / 93; Pulse 86bpm; Resp 18bpm; Spontaneous; Pulse Ox 98% RA; Temp 96.2F gr2 Tympanic; 129.27 kg Reported; Height 5 ft. 10 in. Reported; BMI: 40.8; Pain 3/10; gr2 15:58 15:05 Reassessment: Patient appears in no apparent distress at this time. Patient jo3 states feeling better. Patient states symptoms have improved. jo3 15:58 15:05 Reassessment: Awaiting disposition at this time. Aware of plan of care . jo3 jo3 Chart Complete MTDD
[2016-10-04 22:00] VITALS: BP 150/72
[2016-10-05] MEDS: ACETAMINOPHEN TAB 650MG DOSE (2X325MG) PO PRN ×2 (00:26→17:14)
[2016-10-05 02:00] VITALS: BP 138/73
[2016-10-05 06:00] VITALS: BP 126/62
[2016-10-05 06:47] LABS: MEAN CORPUSCULAR HEMOGLOBIN 27.1 pg (27.0-33.0); MEAN CORPUSCULAR HGB CONC 32.6 g/dl (32.0-36.5); RED CELL DISTRIBUTION WIDTH 13.7 % (11.5-14.5); WHITE BLOOD COUNT 11.3 K/mm3 (4.0-10.0)
[2016-10-05 07:03] LABS: ANION GAP 8 MEQ/L (8-16); BLOOD UREA NITROGEN 16 MG/DL (7-18); CALCIUM LEVEL 8.7 MG/DL (8.8-10.2); CARBON DIOXIDE LEVEL 28 MEQ/L (21-32); CHLORIDE LEVEL 102 MEQ/L (98-107); CREATININE FOR GFR 0.91 MG/DL (0.70-1.30); GLOMERULAR FILTRATION RATE > 60.0 (>49); GLUCOSE, FASTING 124 MG/DL (80-110); POTASSIUM SERUM 4.3 MEQ/L (3.5-5.1); SODIUM LEVEL 138 MEQ/L (136-145)
[2016-10-05] MEDS: AUGMENTIN 875 MG TAB PO SCH ×2 (09:06→20:00)
[2016-10-05] MEDS: traMADol ER 100MG TABLET (ULTRAM ER) PO PRN (09:06)
[2016-10-05 10:00] VITALS: BP 138/76
--- NOTE | 2016-10-05 12:35 | IPNPDOC ---
Date Seen The patient was seen on 10/05/16. Progress Note SUBJECTIVE: The patient tells me that he is feeling well, better than previous days, he denies any further bleeding he denies chest pain shortness of breath nausea vomiting or chills OBJECTIVE PHYSICAL EXAMINATION: VITAL SIGNS: Please see below. GENERAL: Obese disheveled man lying in bed resting peacefully susceptibly greatly does not appear to be in any acute distress HEENT: Left naris packed with serosanguineous stained dressing and drain is in place otherwise cranial nerves are grossly intact CARDIOVASCULAR: S1 S2 regular. RESPIRATORY: Clear Auscultation. ABDOMINAL: Obese bowel sounds present abdomen soft EXTREMITIES: No clubbing cyanosis or edema LABORATORY DATA: Downtrending H&H Please see below. MICROBIOLOGY: Please see below. IMAGING: No new imaging DVT prophylaxis ordered?: Sequentials teds early ambulation no pharmacological agents secondary to recent bleeding ASSESSMENT AND PLAN: This is a 71-year-old man with recurrent bouts of epistaxis 1. Epistaxis: ENT's help is greatly appreciated they do not appreciate active bleeding we will attempt to take his drain out on Thursday but wish to remain inpatient for close monitoring until then. His H&H is now stable we'll simply monitor for now he did have some dark tarry stools earlier likely from digestive blood as he did have an elevated BUN is well, both of which has resolved. The patient has no indication for further platelet transfusion 2. Urticaria: Secondary to platelet transfusion resolved with Benadryl. 3. History of asthma: The patient is on nebulizers as needed. 4. Anxiety: The patient is on his home Xanax 5. Gastroesophageal reflux disease: The patient is on Tums as needed 6. Dyslipidemia: The patient is on Pravachol. 7. Chronic pain: The patient is able to take his home Ultram extended release 8. Lupus anticoagulant: No active palpitations noted at this time DISPOSITION: Patient will have his packing removed by ENT on Thursday following that we'll reevaluate his need to remain in hospital. VS, I&O, 24H, Fishbone Vital Signs/I&O Vital Signs Date Time Temp Pulse Resp B/P Pulse Ox O2 Delivery O2 Flow Rate FiO2 10/05/16 12:30 Room Air 10/05/16 06:00 98.4 87 20 126/62 97 I&O- Last 24 Hours up to 6 AM 10/05/16 06:00 Intake Total 2520 ml Output Total 3075 ml Balance -555 ml Laboratory Data 24H LABS Laboratory Tests 2 10/05/16 05:48: Anion Gap 8, Blood Urea Nitrogen 16, Creatinine 0.91, Sodium Level 138, Potassium Level 4.3, Chloride Level 102, Carbon Dioxide Level 28, Calcium Level 8.7L, Glomerular Filtration Rate > 60.0 CBC/BMP Laboratory Tests 10/05/16 05:48 Calcium Level 8.7 L, Red Blood Count 3.35 L, Mean Corpuscular Volume 83.0, Mean Corpuscular Hemoglobin 27.1, Mean Corpuscular Hemoglobin Concent 32.6, Red Cell Distribution Width 13.7 Microbiology Microbiology 10/04/16 Blood Culture, Received Pending 10/04/16 Blood Culture, Received Pending ROBIN HUYNH MD Oct 05, 2016 12:35
[2016-10-05 14:00] VITALS: BP 154/80
[2016-10-05 18:00] VITALS: BP 146/83
[2016-10-05] MEDS: ALPRAZolam 0.5 MG TAB PO PRN (20:00)
[2016-10-05] MEDS: PRAVASTATIN 20 MG TAB PO SCH (20:00)
[2016-10-05 22:00] VITALS: BP 158/68
[2016-10-06 06:00] VITALS: BP 162/84
[2016-10-06 06:28] LABS: MEAN CORPUSCULAR HEMOGLOBIN 26.5 pg (27.0-33.0); MEAN CORPUSCULAR HGB CONC 32.1 g/dl (32.0-36.5); MEAN CORPUSCULAR VOLUME 82.4 fl (80.0-96.0); RED CELL DISTRIBUTION WIDTH 14.2 % (11.5-14.5); WHITE BLOOD COUNT 10.2 K/mm3 (4.0-10.0)
[2016-10-06 06:36] LABS: ANION GAP 10 MEQ/L (8-16); BLOOD UREA NITROGEN 13 MG/DL (7-18); CALCIUM LEVEL 8.5 MG/DL (8.8-10.2); CARBON DIOXIDE LEVEL 25 MEQ/L (21-32); CHLORIDE LEVEL 102 MEQ/L (98-107); CREATININE FOR GFR 0.95 MG/DL (0.70-1.30); GLOMERULAR FILTRATION RATE > 60.0 (>49); GLUCOSE, FASTING 124 MG/DL (80-110); POTASSIUM SERUM 4.5 MEQ/L (3.5-5.1); SODIUM LEVEL 137 MEQ/L (136-145)
[2016-10-06] MEDS: AUGMENTIN 875 MG TAB PO SCH ×2 (08:48→22:05)
[2016-10-06] MEDS: ACETAMINOPHEN TAB 650MG DOSE (2X325MG) PO PRN (08:48)
[2016-10-06 10:00] VITALS: BP 142/67
[2016-10-06] MEDS: traMADol ER 100MG TABLET (ULTRAM ER) PO PRN (10:45)
[2016-10-06 14:00] VITALS: BP 144/74
--- NOTE | 2016-10-06 15:14 | IPNPDOC ---
Date Seen The patient was seen on 10/06/16. Progress Note SUBJECTIVE: The patient tells me that he is feeling well and has no complaints. OBJECTIVE PHYSICAL EXAMINATION: VITAL SIGNS: Please see below. GENERAL: Obese disheveled man lying in bed resting peacefully does not appear to be in any acute distress HEENT: Left naris packed with serosanguineous stained dressing and drain is in place otherwise cranial nerves are grossly intact CARDIOVASCULAR: S1 S2 regular. RESPIRATORY: Clear Auscultation. ABDOMINAL: Obese bowel sounds present abdomen soft EXTREMITIES: No clubbing cyanosis or edema LABORATORY DATA:relatively stable H&H Please see below. MICROBIOLOGY: Please see below. IMAGING: No new imaging DVT prophylaxis ordered?: Sequentials teds early ambulation no pharmacological agents secondary to recent bleeding ASSESSMENT AND PLAN: This is a 71-year-old man with recurrent bouts of epistaxis 1. Epistaxis: ENT's help is greatly appreciated they do not appreciate active bleeding the patient is to be seen in their clinic later today. Packing as per ENT, Antibiotics as per ENT, if the patient requires further observation as per ENT. Will defer to them for management of epistaxis. 2. Urticaria: Secondary to platelet transfusion resolved with Benadryl. 3. History of asthma: The patient is on nebulizers as needed. 4. Anxiety: The patient is on his home Xanax 5. Gastroesophageal reflux disease: The patient is on Tums as needed 6. Dyslipidemia: The patient is on Pravachol. 7. Chronic pain: The patient is able to take his home Ultram extended release 8. Lupus anticoagulant: No active palpitations noted at this time DISPOSITION: Await recs from ENT VS, I&O, 24H, Adam Vital Signs/I&O Vital Signs Date Time Temp Pulse Resp B/P Pulse Ox O2 Delivery O2 Flow Rate FiO2 10/06/16 10:00 98.1 93 18 142/67 98 Room Air I&O- Last 24 Hours up to 6 AM 10/06/16 06:00 Intake Total 2460 ml Output Total 3050 ml Balance -590 ml Laboratory Data 24H LABS Laboratory Tests 2 10/06/16 05:50: Anion Gap 10, Blood Urea Nitrogen 13, Creatinine 0.95, Sodium Level 137, Potassium Level 4.5, Chloride Level 102, Carbon Dioxide Level 25, Calcium Level 8.5L, Glomerular Filtration Rate > 60.0 CBC/BMP Laboratory Tests 2/13/17 05:50 Calcium Level 8.5 L, Red Blood Count 3.21 L, Mean Corpuscular Volume 82.4, Mean Corpuscular Hemoglobin 26.5 L, Mean Corpuscular Hemoglobin Concent 32.1, Red Cell Distribution Width 14.2 10/06/16 07:26 Microbiology Microbiology 10/04/16 Blood Culture - Preliminary, Resulted No Growth after 48 hours. All Specime... 10/04/16 Blood Culture - Preliminary, Resulted No Growth after 48 hours. All Specime... ROBIN HUYNH MD Oct 06, 2016 15:14
[2016-10-06] MEDS ORDERED: COMBIVENT RESPIMAT 100-20MCG INHALER 4GM INH PRN (16:15)
[2016-10-06 18:00] VITALS: BP 140/63
[2016-10-06] MEDS: ADVAIR DISKUS 250/50 INH PWD INH SCH (19:21)
[2016-10-06] MEDS ORDERED: diphenhydrAMINE 25 MG CAP PO ONE (21:45)
[2016-10-06 22:00] VITALS: BP 156/76
[2016-10-06] MEDS: PRAVASTATIN 20 MG TAB PO SCH (22:05)
[2016-10-06] MEDS: SODIUM CHLORIDE NASAL 0.65% SPRAY BTL (OCEAN) SCH (22:06)
[2016-10-06] MEDS: ALPRAZolam 0.5 MG TAB PO PRN (22:08)
[2016-10-07 06:00] VITALS: BP 137/70
[2016-10-07 07:29] LABS: MEAN CORPUSCULAR HEMOGLOBIN 26.4 pg (27.0-33.0); MEAN CORPUSCULAR HGB CONC 31.6 g/dl (32.0-36.5); MEAN CORPUSCULAR VOLUME 83.6 fl (80.0-96.0); RED CELL DISTRIBUTION WIDTH 14.1 % (11.5-14.5); WHITE BLOOD COUNT 9.3 K/mm3 (4.0-10.0)
[2016-10-07 07:31] LABS: ANION GAP 8 MEQ/L (8-16); BLOOD UREA NITROGEN 18 MG/DL (7-18); CALCIUM LEVEL 8.3 MG/DL (8.8-10.2); CARBON DIOXIDE LEVEL 28 MEQ/L (21-32); CHLORIDE LEVEL 100 MEQ/L (98-107); CREATININE FOR GFR 0.94 MG/DL (0.70-1.30); GLOMERULAR FILTRATION RATE > 60.0 (>49); GLUCOSE, FASTING 119 MG/DL (80-110); POTASSIUM SERUM 4.1 MEQ/L (3.5-5.1); SODIUM LEVEL 136 MEQ/L (136-145)
[2016-10-07] MEDS: ADVAIR DISKUS 250/50 INH PWD INH SCH (08:13)
[2016-10-07] MEDS: SODIUM CHLORIDE NASAL 0.65% SPRAY BTL (OCEAN) SCH (09:54)
[2016-10-07] MEDS: AUGMENTIN 875 MG TAB PO SCH (09:54)
[2016-10-07 10:00] VITALS: BP 144/76
[2016-10-07] MEDS ORDERED: OCEA0.654 (12:55)
[2016-10-07] MEDS ORDERED: AMOX875T2 PO (12:55)
--- NOTE | 2016-10-08 08:48 | DSES ---
DATE OF ADMISSION: 10/06/2016 DATE OF DISCHARGE: 10/07/2016 FINAL DIAGNOSES: Epistaxis. Urticaria. History of asthma. Anxiety. Gastroesophageal reflux disease (GERD). Dyslipidemia. Obesity. Chronic pain. Lupus anticoagulant. ENT PROVIDER: Dr. Farhan Zavala. PRIMARY CARE PROVIDER: Fito Parson. HISTORY OF PRESENT ILLNESS: This is a 71-year-old male patient with underlying medical history of lupus anticoagulant, hypertension, dyslipidemia, thrombocytopenia of known etiology, asthma, depression, presented with epistaxis. Patient was at his primary care provider's office, started having epistaxis of left nostril, started around 1:45 p.m. on the day of admission, decided to come to the ED. In the ED, patient was noted to have recurrent epistaxis for which he received left nostril packing. ED provider spoke to ENT, recommended Augmentin, continue packing and rinsing of right nostril. Platelet transfusion provided. Admitted for inpatient monitoring. HOSPITAL COURSE: Patient was admitted for inpatient monitoring. Hemoglobin and hematocrit was monitored and remained relatively stable. Appreciate ENT consultation. Packing was removed. Patient was monitored overnight and has not had recurrent bleeding. Case discussed with Dr. Farhan Zavala. Dr. Zavala is comfortable with discharging the patient. Patient tolerating oral. Ready for discharge for further care as outpatient. VITAL SIGNS: Temperature 98.1, pulse 70, respiration 18, blood pressure 144/76, pulse ox 95% on room air. LABORATORY: WBC 9.3, hemoglobin and hematocrit 8.6/27.3, platelets 225. Chemistry: Sodium 136, potassium 4.1, chloride 100, bicarbonate 28, BUN 18, creatinine 0.94. DISCHARGE MEDICATION: - Augmentin 875 mg by mouth twice daily for 5 more days - saline nasal spray every 6 hours as needed PATIENT'S HOME MEDICATIONS: - hydrocodone/acetaminophen 7.5/325 mg as needed pain - Combivent inhalation as needed. - Xanax 1 mg by mouth daily at bedtime as needed - Losartan - hydrochlorothiazide 50/12.5 mg one tablet by mouth daily - Pravastatin 40 mg by mouth daily at bedtime - tramadol 300 mg by mouth as needed were continued DISCHARGE INSTRUCTIONS: Patient is instructed to followup with primary care provider in 7 days and ENT provider in 3 weeks. Return to the hospital if symptoms return.
== END 2016-10-07 13:51 | disposition home or self-care (01) | DRG 151 ==
LOC: M ED 13:08 → M ED INP 17:54 → INTOOBSV 17:54 → M MSPAV 19:52 → OBSVTOIN 10-06 17:38
PROVIDERS: ADMIT Internal Medicine; ATTEND Hospitalist
PROC: 30233R1 Transfusion of Nonautologous Platelets into Peripheral Vein, Percutaneous Approach (ICD-10-PCS; principal; 2016-10-06)
DX: R04.0 Epistaxis (principal); D68.62 Lupus anticoagulant syndrome; D69.6 Thrombocytopenia, unspecified; T80.89XA Other complications following infusion, transfusion and therapeutic injection, initial encounter; F41.9 Anxiety disorder, unspecified; E66.9 Obesity, unspecified; E78.5 Hyperlipidemia, unspecified; K21.9 Gastro-esophageal reflux disease without esophagitis; J45.909 Unspecified asthma, uncomplicated; L50.0 Allergic urticaria; I10 Essential (primary) hypertension; Z79.899 Other long term (current) drug therapy; Z88.5 Allergy status to narcotic agent; Z88.8 Allergy status to other drugs, medicaments and biological substances; G47.00 Insomnia, unspecified

== ENCOUNTER 2016-11-20 17:03 | Emergency (ER) | payer MEDICARE, OTHER ==
[~2016-11-20] VITALS: Ht 175.3 cm; Wt 131.1 kg
[~2016-11-20 17:03] MED LIST changes: +AMOX875T2 PO; +IBUP80TA PO; +OCEA0.654
[2016-11-20] MEDS ORDERED: ADV500INH INH (17:13)
[2016-11-20 18:17] LABS: ANION GAP 8 MEQ/L (8-16); BLOOD UREA NITROGEN 18 MG/DL (7-18); CALCIUM LEVEL 8.7 MG/DL (8.8-10.2); CARBON DIOXIDE LEVEL 26 MEQ/L (21-32); CHLORIDE LEVEL 103 MEQ/L (98-107); CREATININE FOR GFR 1.04 MG/DL (0.70-1.30); GLOMERULAR FILTRATION RATE > 60.0 (>49); GLUCOSE, FASTING 94 MG/DL (80-110); POTASSIUM SERUM 4.4 MEQ/L (3.5-5.1); SODIUM LEVEL 137 MEQ/L (136-145)
[2016-11-20 18:18] LABS: BASO % 0.5 % (0.0-1.0); EOS # 0.1 K/mm3 (0.0-0.50); EOS % 1.6 % (0.0-3.0); LARGE UNSTAINED CELL # 0.1 K/mm3 (0.0-0.4); LARGE UNSTAINED CELL % 1.7 % (0.0-4.0); LYMPH # 2.2 K/mm3 (1.5-4.5); LYMPH % 26.9 % (24.0-44.0); MEAN CORPUSCULAR HEMOGLOBIN 25.2 pg (27.0-33.0); MEAN CORPUSCULAR HGB CONC 31.5 g/dl (32.0-36.5); MEAN CORPUSCULAR VOLUME 79.9 fl (80.0-96.0); MONO # 0.5 K/mm3 (0.0-0.8); MONO % 6.2 % (0.0-5.0); NEUTROPHILS % 63.1 % (36.0-66.0); PLATELET COUNT, AUTOMATED 116 k/mm3 (150-450); RED CELL DISTRIBUTION WIDTH 14.8 % (11.5-14.5); WHITE BLOOD COUNT 7.8 K/mm3 (4.0-10.0)
--- NOTE | 2016-11-20 18:25 | REP ---
Clinical: Cough. Dyspnea. Comparison: 10/04/2016 . Findings: The mediastinum and cardiac silhouette are stable and within normal limits for portable technique. The lung james are clear without acute consolidation, effusion, or pneumothorax. Skeletal structures are intact. Impression: Normal portable chest x-ray Signed by Feliberto Walker MD 11/20/2016 06:17 P
[2016-11-20] MEDS ORDERED: IPRATROPIUM 0.5MG/ALBUTEROL 2.5MG INH SOL UD 3ML (DUONEB)(J7620) NEB ONE (18:30)
[2016-11-20] MEDS ORDERED: predniSONE 50 MG TAB PO ONE (19:15)
[2016-11-20] MEDS ORDERED: predniSONE 20 MG TAB PO ONE (19:15)
--- NOTE | 2016-11-20 20:00 | REPUSA ---
Clinical history: Pain, swelling. Findings: The left common femoral, superficial femoral, popliteal, and other deep venous structures c ompress normally and demonstrate normal color Doppler flow. Normal venous waveforms with augmentation are seen. Impression: No evidence of deep vein thrombosis in the left femoral popliteal venous system.
[2016-11-20] MEDS ORDERED: PRED20TA PO (20:38)
[2016-11-20 20:45] VITALS: BP 157/72
--- NOTE | 2016-11-21 16:36 | ECGEPIP ---
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
== END 2016-11-20 20:46 | disposition home or self-care (01) ==
LOC: M ED 18:05
DX: J45.21 Mild intermittent asthma with (acute) exacerbation (principal); I44.0 Atrioventricular block, first degree; I45.9 Conduction disorder, unspecified; I10 Essential (primary) hypertension; E66.9 Obesity, unspecified; R60.0 Localized edema; G47.30 Sleep apnea, unspecified; F41.9 Anxiety disorder, unspecified; Z79.899 Other long term (current) drug therapy; Z79.51 Long term (current) use of inhaled steroids; Z88.5 Allergy status to narcotic agent; Z88.8 Allergy status to other drugs, medicaments and biological substances; Z87.891 Personal history of nicotine dependence

== ENCOUNTER 2017-03-26 00:49 | Emergency (ER) | payer MEDICARE, OTHER ==
[~2017-03-26] VITALS: Ht 177.8 cm; Wt 120.5 kg
[~2017-03-26 00:49] MED LIST changes: +ADV500INH INH; +CIPR-249 PO; -CIPR500T89 PO; +IBUP1TAB7 PO; -IBUP800T23 PO; -LOSA50TA21 PO; +LOSA50TA5 PO; +PRED20TA PO
[2017-03-26 01:36] VITALS: BP 129/60
[2017-03-26 02:09] LABS: BASO % 0.3 % (0.0-1.0); EOS # 0.2 K/mm3 (0.0-0.50); EOS % 1.6 % (0.0-3.0); LARGE UNSTAINED CELL # 0.2 K/mm3 (0.0-0.4); LARGE UNSTAINED CELL % 1.7 % (0.0-4.0); LYMPH # 2.8 K/mm3 (1.5-4.5); LYMPH % 23.5 % (24.0-44.0); MEAN CORPUSCULAR HEMOGLOBIN 26.5 pg (27.0-33.0); MEAN CORPUSCULAR HGB CONC 32.6 g/dl (32.0-36.5); MEAN CORPUSCULAR VOLUME 81.3 fl (80.0-96.0); MONO # 0.5 K/mm3 (0.0-0.8); MONO % 3.9 % (0.0-5.0); NEUTROPHILS # 8.1 K/mm3 (1.8-7.7); NEUTROPHILS % 69.2 % (36.0-66.0); PLATELET COUNT, AUTOMATED 177 k/mm3 (150-450); WHITE BLOOD COUNT 11.8 K/mm3 (4.0-10.0)
[2017-03-26] MEDS ORDERED: NS 1,000 ML IV ONE (02:15)
[2017-03-26 02:32] LABS: ALBUMIN 3.8 GM/DL (3.2-5.2); ALKALINE PHOSPHATASE 91 U/L (45-117); ALT/SGPT 46 U/L (12-78); AMYLASE 73 U/L (25-115); ANION GAP 13 MEQ/L (8-16); AST/SGOT 39 U/L (15-37); BILIRUBIN,DIRECT < 0.1 MG/DL (0.0-0.2); BILIRUBIN,TOTAL 0.3 MG/DL (0.2-1.0); BLOOD UREA NITROGEN 19 MG/DL (7-18); CALCIUM LEVEL 9.5 MG/DL (8.8-10.2); CARBON DIOXIDE LEVEL 22 MEQ/L (21-32); CHLORIDE LEVEL 104 MEQ/L (98-107); CREATININE FOR GFR 1.68 MG/DL (0.70-1.30); GLOMERULAR FILTRATION RATE 43.2 (>42); GLUCOSE, FASTING 181 MG/DL (83-110); POTASSIUM SERUM 4.1 MEQ/L (3.5-5.1); SODIUM LEVEL 139 MEQ/L (136-145)
[2017-03-26] MEDS ORDERED: NS 500 ML IV ONE (04:00)
== END 2017-03-26 04:47 | disposition home or self-care (01) ==
LOC: M ED 00:49 → EDBD 00:49 → M ED 04:47
DX: K52.89 Other specified noninfective gastroenteritis and colitis (principal); R42 Dizziness and giddiness; I10 Essential (primary) hypertension; E78.5 Hyperlipidemia, unspecified; J44.9 Chronic obstructive pulmonary disease, unspecified; D64.9 Anemia, unspecified; D69.6 Thrombocytopenia, unspecified; M32.9 Systemic lupus erythematosus, unspecified; Z88.5 Allergy status to narcotic agent; Z88.8 Allergy status to other drugs, medicaments and biological substances; Z79.899 Other long term (current) drug therapy

== ENCOUNTER 2017-05-03 11:01 | Emergency (ER) | payer MEDICARE, OTHER ==
[~2017-05-03] VITALS: Ht 175.3 cm; Wt 118.2 kg
[2017-05-03 12:38] LABS: BASO % 0.7 % (0.0-1.0); EOS # 0.3 K/mm3 (0.0-0.50); EOS % 3.9 % (0.0-3.0); LARGE UNSTAINED CELL # 0.1 K/mm3 (0.0-0.4); LARGE UNSTAINED CELL % 1.9 % (0.0-4.0); LYMPH # 2.1 K/mm3 (1.5-4.5); LYMPH % 26.4 % (24.0-44.0); MEAN CORPUSCULAR HEMOGLOBIN 26.2 pg (27.0-33.0); MEAN CORPUSCULAR HGB CONC 32.2 g/dl (32.0-36.5); MEAN CORPUSCULAR VOLUME 81.5 fl (80.0-96.0); MONO # 0.4 K/mm3 (0.0-0.8); MONO % 5.5 % (0.0-5.0); NEUTROPHILS # 4.6 K/mm3 (1.8-7.7); NEUTROPHILS % 61.6 % (36.0-66.0); PLATELET COUNT, AUTOMATED 150 k/mm3 (150-450); RED CELL DISTRIBUTION WIDTH 14.3 % (11.5-14.5); WHITE BLOOD COUNT 7.5 K/mm3 (4.0-10.0)
[2017-05-03 13:33] LABS: ALBUMIN 3.6 GM/DL (3.2-5.2); ALBUMIN/GLOBULIN RATIO 0.82 (1.00-1.93); ALKALINE PHOSPHATASE 80 U/L (45-117); ALT/SGPT 37 U/L (12-78); AMYLASE 43 U/L (25-115); ANION GAP 8 MEQ/L (8-16); AST/SGOT 18 U/L (15-37); BILIRUBIN,TOTAL 0.4 MG/DL (0.2-1.0); BLOOD UREA NITROGEN 13 MG/DL (7-18); CALCIUM LEVEL 9.6 MG/DL (8.8-10.2); CARBON DIOXIDE LEVEL 26 MEQ/L (21-32); CHLORIDE LEVEL 106 MEQ/L (98-107); CREATININE FOR GFR 0.89 MG/DL (0.70-1.30); GLOMERULAR FILTRATION RATE > 60.0 (>42); GLUCOSE, FASTING 110 MG/DL (83-110); POTASSIUM SERUM 4.3 MEQ/L (3.5-5.1); SODIUM LEVEL 140 MEQ/L (136-145)
[2017-05-03] MEDS ORDERED: ISOVUE-370 76% 100ML VIAL (Q9967) As Ordered ONE (13:46)
--- NOTE | 2017-05-03 14:15 | REP ---
Clinical: Acute lower abdominal pain. Technique: Axial contrast enhanced images from the lung bases to the pubic symphysis using 100 ml Isovue 370 intravenous contrast material with coronal and sagittal re-formations. Comparison: 02/03/2016. Findings: Acute diverticulitis is appreciated involving the proximal sigmoid colon. Findings include mural thickening and pericolonic stranding adjacent to an inflamed diverticulum (images 101 - 114). No evidence for bowel obstruction, free air to suggest perforation, free fluid or drainable collection/abscess. The remainder of the small large bowel is grossly unremarkable. Liver, spleen, pancreas, gallbladder, bilateral adrenal glands and kidneys are normal. Pelvis demonstrates normal bladder and mildly prominent prostate gland measuring 5.3 cm transverse diameter. No significant adenopathy. Abdominal aorta and vasculature without aneurysm or dissection. Musculoskeletal structures demonstrate degenerative changes. Lung bases are clear. Impression: 1. Acute sigmoid diverticulitis without obstruction, perforation, or drainable collection/abscess. Signed by Feliberto Walker MD 05/03/2017 02:07 P
[2017-05-03] MEDS ORDERED: CIPROFLOXACIN 500 MG TAB PO ONE (14:45)
[2017-05-03] MEDS ORDERED: metroNIDAZOLE (FLAGYL) 500 MG TAB PO ONE (14:45)
[2017-05-03] MEDS ORDERED: CIPR-249 PO (14:47)
[2017-05-03] MEDS ORDERED: FLAG500T PO (14:47)
[2017-05-03 15:04] VITALS: BP 161/88
== END 2017-05-03 15:07 | disposition home or self-care (01) ==
LOC: M ED 11:01
DX: K57.32 Diverticulitis of large intestine without perforation or abscess without bleeding (principal); I10 Essential (primary) hypertension; E78.00 Pure hypercholesterolemia, unspecified; J45.909 Unspecified asthma, uncomplicated; G47.30 Sleep apnea, unspecified; K21.9 Gastro-esophageal reflux disease without esophagitis; R97.20 Elevated prostate specific antigen [PSA]; Z86.19 Personal history of other infectious and parasitic diseases; M54.9 Dorsalgia, unspecified; D64.9 Anemia, unspecified; F41.9 Anxiety disorder, unspecified; G62.9 Polyneuropathy, unspecified; Z87.891 Personal history of nicotine dependence; Z88.5 Allergy status to narcotic agent; Z88.8 Allergy status to other drugs, medicaments and biological substances; Z79.899 Other long term (current) drug therapy; Z79.51 Long term (current) use of inhaled steroids
CPT/HCPCS: 36415; 74177; 80053; 81001; 82150; 83690; 85025; 99283; Q9967

== ENCOUNTER 2017-10-24 23:07 | Emergency (ER) | payer MEDICARE, OTHER ==
[2017-10-24] MEDS: CLINDAMYCIN 150 MG CAP PO (23:59)
[2017-10-24] MEDS: LIDOCAINE VISCOUS 2% SOLN 15ML UDC MT (23:59)
[2017-10-24] MEDS: KETOROLAC 60 MG/2 ML VIAL (J1885) IM (23:59)
== END 2017-10-25 00:25 | disposition home or self-care (01) ==
LOC: M ED 23:07
DX: K04.7 Periapical abscess without sinus (principal); I10 Essential (primary) hypertension; D64.9 Anemia, unspecified; F41.9 Anxiety disorder, unspecified; D68.59 Other primary thrombophilia; E66.9 Obesity, unspecified; Z79.899 Other long term (current) drug therapy; Z88.5 Allergy status to narcotic agent; Z88.8 Allergy status to other drugs, medicaments and biological substances
CPT/HCPCS: J1885

== ENCOUNTER 2018-03-10 21:18 | Emergency (ER) | payer MEDICARE, OTHER ==
[2018-03-10] MEDS: ALBUTEROL SULFATE 2.5 MG/0.5 ML INH NEB SOLN NEB (22:37)
[2018-03-10 22:40] LABS: BASO % 0.4 % (0.0-1.0); EOS # 0.2 10^3/uL (0.0-0.50); EOS % 2.1 % (0.0-3.0); HEMATOCRIT 38.5 % (42.0-52.0); HEMOGLOBIN 12.6 g/dl (13.5-17.5); IMMATURE GRANULOCYTE % 0.4 % (0-3.0); LYMPH # 3.6 10^3/uL (1.5-4.5); LYMPH % 37.9 % (24.0-44.0); MEAN CORPUSCULAR HEMOGLOBIN 26.8 pg (27.0-33.0); MEAN CORPUSCULAR HGB CONC 32.7 g/dl (32.0-36.5); MEAN CORPUSCULAR VOLUME 81.9 fl (80.0-96.0); MONO # 0.7 10^3/uL (0.0-0.8); NEUTROPHILS % 52.2 % (36.0-66.0); PLATELET COUNT, AUTOMATED 137 10^3/uL (150-450); RED CELL DISTRIBUTION WIDTH 14.3 % (11.5-14.5); WHITE BLOOD COUNT 9.6 10^3/uL (4.0-10.0)
[2018-03-10 22:59] LABS: D-DIMER QUANT 413.6 ng/ml (<500)
[2018-03-10 23:04] LABS: ANION GAP 8 MEQ/L (8-16); BLOOD UREA NITROGEN 14 MG/DL (7-18); CALCIUM LEVEL 8.9 MG/DL (8.8-10.2); CARBON DIOXIDE LEVEL 28 MEQ/L (21-32); CHLORIDE LEVEL 106 MEQ/L (98-107); CPK CREATINE PHOSPHOKINASE 158 U/L (39-308); CREATININE FOR GFR 0.95 MG/DL (0.70-1.30); GLOMERULAR FILTRATION RATE > 60.0 (>42); GLUCOSE, FASTING 96 MG/DL (70-100); POTASSIUM SERUM 3.9 MEQ/L (3.5-5.1); SODIUM LEVEL 142 MEQ/L (136-145); TROPONIN I 0.04 NG/ML (< 0.10)
[2018-03-10 23:05] LABS: CK-MB VALUE MASS 2.4 NG/ML (<3.6); MB/CK RELATIVE INDEX 1.51 (< OR =4); NT-PRO BNP 271 PG/ML (<125)
[2018-03-11 02:58] LABS: CK-MB VALUE MASS 1.8 NG/ML (<3.6); CPK CREATINE PHOSPHOKINASE 129 U/L (39-308); MB/CK RELATIVE INDEX 1.39 (< OR =4); TROPONIN I 0.04 NG/ML (< 0.10)
== END 2018-03-11 03:10 | disposition home or self-care (01) ==
LOC: M ED 03-11 03:10
DX: R07.89 Other chest pain (principal); R42 Dizziness and giddiness; R06.02 Shortness of breath; I44.0 Atrioventricular block, first degree; I10 Essential (primary) hypertension; D64.9 Anemia, unspecified; F41.9 Anxiety disorder, unspecified; Z87.19 Personal history of other diseases of the digestive system; Z79.899 Other long term (current) drug therapy; Z79.51 Long term (current) use of inhaled steroids; Z88.5 Allergy status to narcotic agent; Z87.891 Personal history of nicotine dependence
CPT/HCPCS: 71046

== ENCOUNTER → 2018-07-22 | Outpatient (CLI) | payer MEDICARE, OTHER ==
[2018-07-22 13:43] LABS: PROSTATIC SPECIFIC AG MONITOR 3.5 NG/ML (< 4.0)
== END ==
LOC: M LAB 12:13
DX: N40.1 Benign prostatic hyperplasia with lower urinary tract symptoms (principal)
CPT/HCPCS: 84153

== ENCOUNTER 2019-01-20 14:26 | Emergency (ER) | payer MEDICARE, OTHER ==
[~2019-01-20] VITALS: Ht 177.8 cm; Wt 127.3 kg
[~2019-01-20 14:26] MED LIST changes: -/ADVA50050; -/ESOM40CA; +ADVA1AER2; +AMOX/K; +CLEO300C2 PO; +FLAG500T PO; +NEXI1CAP3
[2019-01-20] MEDS ORDERED: ALPR1TAB3 (14:43)
--- NOTE | 2019-01-20 15:31 | REP ---
Right lower extremity duplex venous ultrasound: History: Injury in a fall 6 weeks ago with trauma to the area of the kneecap. Pain and inability to weight bear. Rule out DVT. Status post steroid injection at the knee. Findings: The deep veins are anechoic and fully compressible on two-dimensional scanning on the groin to the popliteal fossa in the right lower extremity. Color flow imaging is homogeneous. Spectral Doppler interrogation demonstrates intact respiratory variation in flow and normal manual augmentation of flow. There is no evidence of deep vein thrombosis. Scanning at the lateral aspect of the right knee demonstrates a fluid collection suggesting a joint effusion or a bursal fluid collection. This measures 11.3 cm craniocaudal by 2.0 cm anteroposterior by 5.7 cm medial to lateral. Impression: Joint effusion versus bursal fluid collection versus soft tissue hematoma lateral aspect of the right knee soft tissues. There is no evidence of deep vein thrombosis. Electronically Signed by Melvin Stringer MD 01/20/2019 03:22 P
[2019-01-20 17:37] VITALS: BP 138/85
== END 2019-01-20 17:40 | disposition home or self-care (01) ==
LOC: M ED 14:26
DX: M25.561 Pain in right knee (principal); M79.661 Pain in right lower leg; Z91.81 History of falling; I10 Essential (primary) hypertension; E78.00 Pure hypercholesterolemia, unspecified; J45.909 Unspecified asthma, uncomplicated; G47.30 Sleep apnea, unspecified; K21.9 Gastro-esophageal reflux disease without esophagitis; K52.9 Noninfective gastroenteritis and colitis, unspecified; R97.20 Elevated prostate specific antigen [PSA]; M54.9 Dorsalgia, unspecified; D64.9 Anemia, unspecified; F41.9 Anxiety disorder, unspecified; G62.2 Polyneuropathy due to other toxic agents; T53.7X1 Toxic effect of other halogen derivatives of aromatic hydrocarbons, accidental (unintentional); Z79.899 Other long term (current) drug therapy; Z79.51 Long term (current) use of inhaled steroids

== ENCOUNTER → 2019-01-24 | Outpatient (CLI) | payer MEDICARE, OTHER ==
[~2019-01-24] MED LIST changes: +ALPR1TAB3
== END ==
LOC: M LAB 10:14
PROVIDERS: ATTEND Nurse Practitioner Adult Health
DX: N40.1 Benign prostatic hyperplasia with lower urinary tract symptoms (principal)

== ENCOUNTER 2019-05-01 20:38 | Emergency (ER) | payer MEDICARE, OTHER ==
[~2019-05-01] VITALS: Ht 177.8 cm; Wt 125.0 kg
[2019-05-01 21:12] LABS: BASO % 0.3 % (0.0-1.0); EOS # 0.2 10^3/uL (0.0-0.5); EOS % 1.8 % (0.0-3.0); HEMATOCRIT 38.3 % (42.0-52.0); HEMOGLOBIN 12.8 g/dl (13.5-17.5); LYMPH # 2.9 10^3/uL (1.5-5.0); LYMPH % 29.5 % (24.0-44.0); MEAN CORPUSCULAR HEMOGLOBIN 27.8 pg (27.0-33.0); MEAN CORPUSCULAR HGB CONC 33.4 g/dl (32.0-36.5); MEAN CORPUSCULAR VOLUME 83.1 fl (80.0-96.0); MONO # 0.8 10^3/uL (0.0-0.8); MONO % 8.1 % (0.0-5.0); NEUTROPHILS # 5.9 10^3/uL (1.5-8.5); PLATELET COUNT, AUTOMATED 135 10^3/uL (150-450); RED BLOOD COUNT 4.61 10^6/uL (4.30-6.10); WHITE BLOOD COUNT 9.9 10^3/uL (4.0-10.0)
[2019-05-01 21:46] LABS: ALBUMIN 3.6 GM/DL (3.2-5.2); ALT/SGPT 41 U/L (12-78); BILIRUBIN,DIRECT 0.2 MG/DL (0.0-0.2); BILIRUBIN,TOTAL 0.4 MG/DL (0.2-1.0); BLOOD UREA NITROGEN 20 MG/DL (7-18); CALCIUM LEVEL 9.1 MG/DL (8.8-10.2); CARBON DIOXIDE LEVEL 27 MEQ/L (21-32); CHLORIDE LEVEL 103 MEQ/L (98-107); CREATININE FOR GFR 1.18 MG/DL (0.70-1.30); GLOMERULAR FILTRATION RATE > 60.0 (>42); GLUCOSE, FASTING 133 MG/DL (70-100); LIPASE 90 U/L (73-393); POTASSIUM SERUM 3.4 MEQ/L (3.5-5.1); SODIUM LEVEL 138 MEQ/L (136-145); TOTAL PROTEIN 7.4 GM/DL (6.4-8.2)
[2019-05-01] MEDS ORDERED: ISOVUE-370 76% 100ML VIAL (Q9967) As Ordered ONE (21:56)
[2019-05-01] MEDS: NS 1,000 ML IV ONE (22:05)
[2019-05-01] MEDS: MORPHINE 4 MG/ML 1ML VIAL/SYRINGE (J2270) IV ONE (22:05)
[2019-05-01] MEDS: ONDANSETRON 4MG/2ML VIAL (J2405) IV ONE (22:05)
[2019-05-01] MEDS ORDERED: LOVA40TA PO (22:31)
--- NOTE | 2019-05-01 22:55 | REPVR ---
EXAM: CT Abdomen and Pelvis With Contrast EXAM DATE/TIME: 05/01/2019 10:10 PM CLINICAL HISTORY: 74 years old, male; Abdominal pain; Localized; Lower; Additional info: Lower abd pain, HX divertic TECHNIQUE: Imaging protocol: Computed tomography of the abdomen and pelvis with intravenous contrast. Radiation optimization: All CT scans at this facility use at least one of these dose optimization techniques: automated exposure control; mA and/or kV adjustment per patient size (includes targeted exams where dose is matched to clinical indication); or iterative reconstruction. Contrast material: ISOVUE 370; Contrast volume: 100 ml; Contrast route: IV; COMPARISON: CT ABD PELVIS WITH CONTRAST 05/03/2017 1:49 PM FINDINGS: Mediastinum: A small hiatal hernia is present. Liver: There is a diffuse decrease in hepatic parenchymal density, consistent with fatty infiltration. Gallbladder and bile ducts: The gallbladder is incompletely distended. This is most likely related to incomplete fasting. Clinical correlation to exclude gallbladder pathology suggested. Pancreas: Normal. No ductal dilation. Spleen: Normal. No splenomegaly. Adrenals: Normal. No mass. Kidneys and ureters: Right renal cyst measures 15 mm. Stomach and bowel: There is a segment of acute inflammation in the proximal sigmoid colon without evidence of a drainable abscess or free air, consistent with acute diverticulitis. Motion artifact limits visualization. Neuro stratification in the right colon likely related to incomplete distention. Otherwise unremarkable. No obstruction. No mucosal thickening. Appendix: No evidence of appendicitis. Intraperitoneal space: No fluid or mass. Vasculature: The aorta demonstrates mild atherosclerotic calcification. Lymph nodes: Unremarkable. No enlarged lymph nodes. Bladder: Mild thickening of the bladder wall stable in comparison to the prior study. Reproductive: The prostate gland demonstrates mild hyperplasia. Bones/joints: The spine demonstrates mild degenerative changes. Soft tissues: Unremarkable. IMPRESSION: 1. There is a diffuse decrease in hepatic parenchymal density, consistent with fatty infiltration. 2. The gallbladder is incompletely distended. This is most likely related to incomplete fasting. Clinical correlation to exclude gallbladder pathology suggested. 3. Small hiatal hernia. 4. There is a segment of acute inflammation in the proximal sigmoid colon without evidence of a drainable abscess or free air, consistent with acute diverticulitis. Motion artifact limits visualization. 5. Mild prostatic hyperplasia. 6. Mural stratification in the right colon likely related to incomplete distention however correlation with exclude right-sided colitis suggested. Electronically signed by: Reagan Cui On 05/01/2019 22:55:02 PM
[2019-05-01] MEDS ORDERED: FLAG500T PO (23:10)
[2019-05-01] MEDS ORDERED: CIPR-249 PO (23:10)
[2019-05-01 23:24] VITALS: BP 133/63
[2019-05-01] MEDS: CIPROFLOXACIN 500 MG TAB PO ONE (23:31)
[2019-05-01] MEDS: metroNIDAZOLE (FLAGYL) 500 MG TAB PO ONE (23:31)
[2019-05-01] MEDS: NORCO 5/325MG TABLET (BULK FOR ED) PO ONE (23:31)
== END 2019-05-01 23:33 | disposition home or self-care (01) ==
LOC: M ED 20:38
DX: K57.32 Diverticulitis of large intestine without perforation or abscess without bleeding (principal); I10 Essential (primary) hypertension; E78.5 Hyperlipidemia, unspecified; K44.9 Diaphragmatic hernia without obstruction or gangrene; G62.9 Polyneuropathy, unspecified; Z88.5 Allergy status to narcotic agent; Z88.8 Allergy status to other drugs, medicaments and biological substances; Z79.899 Other long term (current) drug therapy
CPT/HCPCS: 74177; 80048; 80076; 81001; 83690; 85025; 96374; 96375; 99284; J2270; J2405; Q9967

== ENCOUNTER → 2020-01-17 | Outpatient (CLI) | payer MEDICARE, BC ==
[~2020-01-17] MED LIST changes: +LOVA40TA PO
== END ==
LOC: M LAB 12:27
PROVIDERS: ATTEND Nurse Practitioner Adult Health
DX: N42.9 Disorder of prostate, unspecified (principal)

== ENCOUNTER 2020-05-28 17:08 | Emergency (ER) | payer MEDICARE, BC ==
[~2020-05-28] VITALS: Ht 177.8 cm; Wt 125.9 kg
[2020-05-28] MEDS ORDERED: COMBIVENT RESPIMAT 100-20MCG INHALER 4GM INH ONE (20:30)
[2020-05-28] MEDS ORDERED: methylPREDNISolone 125MG 2ML VIAL IV ONE (20:30)
[2020-05-28] MEDS ORDERED: ROSU40TA4 PO (20:54)
[2020-05-28] MEDS ORDERED: ACAR50TA3 PO (20:54)
[2020-05-28] MEDS ORDERED: ALLO10TA PO (20:54)
[2020-05-28] MEDS ORDERED: POTA10CA32 PO (20:54)
[2020-05-28] MEDS ORDERED: COMBAER6 INH (20:54)
[2020-05-28 20:58] LABS: BASO # 0.1 10^3/uL (0.0-0.2); BASO % 0.5 % (0.0-1.0); EOS # 0.3 10^3/uL (0.0-0.5); EOS % 3.4 % (0.0-3.0); HEMATOCRIT 34.4 % (42.0-52.0); HEMOGLOBIN 11.2 g/dl (13.5-17.5); LYMPH # 2.2 10^3/uL (1.5-5.0); LYMPH % 22.8 % (24.0-44.0); MEAN CORPUSCULAR HEMOGLOBIN 27.5 pg (27.0-33.0); MEAN CORPUSCULAR HGB CONC 32.6 g/dl (32.0-36.5); MEAN CORPUSCULAR VOLUME 84.5 fl (80.0-96.0); NEUTROPHILS % 62.4 % (36.0-66.0); PLATELET COUNT, AUTOMATED 195 10^3/uL (150-450); RED BLOOD COUNT 4.07 10^6/uL (4.30-6.10); WHITE BLOOD COUNT 9.6 10^3/uL (4.0-10.0)
[2020-05-28 21:24] LABS: ALT/SGPT 75 U/L (12-78); BILIRUBIN,DIRECT 0.2 MG/DL (0.0-0.2); BILIRUBIN,TOTAL 0.5 MG/DL (0.2-1.0); BLOOD UREA NITROGEN 12 MG/DL (7-18); CALCIUM LEVEL 9.1 MG/DL (8.8-10.2); CARBON DIOXIDE LEVEL 26 MEQ/L (21-32); CHLORIDE LEVEL 104 MEQ/L (98-107); CK-MB VALUE MASS < 1.0 NG/ML (<3.6); CPK CREATINE PHOSPHOKINASE 55 U/L (39-308); CREATININE FOR GFR 0.87 MG/DL (0.70-1.30); GLOMERULAR FILTRATION RATE > 60.0 (>42); GLUCOSE, FASTING 104 MG/DL (70-100); MB/CK RELATIVE INDEX 1.82 (< OR =4); NT-PRO BNP 145 PG/ML (<125); POTASSIUM SERUM 4.2 MEQ/L (3.5-5.1); SODIUM LEVEL 137 MEQ/L (136-145); TOTAL PROTEIN 7.1 GM/DL (6.4-8.2); TROPONIN I 0.02 NG/ML (< 0.10)
--- NOTE | 2020-05-28 23:06 | REPVR ---
PROCEDURE INFORMATION: Exam: XR Chest, 1 View Exam date and time: 05/28/20 (10:18pm) Age: 75 years old Clinical indication: SOB, dyspnea, cough TECHNIQUE: Imaging protocol: Portable CXR Views: 1 view COMPARISON: Chest films of 03/10/18 FINDINGS: Comparison is made with chest films done on 03/10/18. Hazy opacity at the left lung base, including the left costophrenic angle region. Faint hazy opacity laterally at the right lung base. The mid and upper lung zones remain clear. Probable left pleural effusion. Stable heart size. No pneumothorax. Degenerative thoracic spine changes. IMPRESSION: Suspect bibasilar pneumonia, more confluent at the lateral left lung base. A small left pleural effusion may be present. Close follow-up is suggested. Electronically signed by: Carmen Ryder On 05/28/2020 23:06:19 PM
[2020-05-29] MEDS ORDERED: ISOVUE-370 76% 100ML VIAL As Ordered ONE (00:11)
--- NOTE | 2020-05-29 01:29 | REPVR ---
PROCEDURE INFORMATION: Exam: CT Angiography Chest With Contrast Exam date and time: 05/29/2020 12:51 AM Age: 75 years old Clinical indication: Shortness of breath; Additional info: SOB, question pleural effusion on cxr TECHNIQUE: Imaging protocol: Computed tomographic angiography of the chest with intravenous contrast. 3D rendering (Not supervised by radiologist): MIP and/or 3D reconstructed images were created by the technologist. Radiation optimization: All CT scans at this facility use at least one of these dose optimization techniques: automated exposure control; mA and/or kV adjustment per patient size (includes targeted exams where dose is matched to clinical indication); or iterative reconstruction. Contrast material: ISOVUE 370; Contrast volume: 75 ml; Contrast route: INTRAVENOUS (IV); COMPARISON: CR PORTABLE CHEST X-RAY 05/28/2020 10:17 PM FINDINGS: Limitations: Examination is limited by motion artifact. Pulmonary arteries: No large pulmonary emboli. Evaluation of the segmental pulmonary arteries are limited. Aorta: Moderate atherosclerotic disease. No aortic aneurysm. No aortic dissection. Tracheobronchial tree: Bronchial mucous plugging bilaterally. Lungs: Consolidation in the lingula. Consolidation in the lateral right middle lobe. Mild consolidations in the lower lobes bilaterally. Nodule in the central right middle lobe measuring 4 mm. (Series 401, image 128). Pleural space: Mild bilateral pleural effusions. No pneumothorax. Heart: Unremarkable. No cardiomegaly. No pericardial effusion. Lymph nodes: Unremarkable. No enlarged lymph nodes. Stomach and bowel: Small sliding-type gastric hiatal hernia. Bones/joints: Mild degenerative spine. No acute fracture. Soft tissues: Unremarkable. IMPRESSION: 1. Limited evaluation. 2. No large pulmonary emboli. 3. Evaluation of the segmental pulmonary arteries are limited. 4. Multifocal consolidations bilaterally. Suspicious for pneumonia. 5. Lung nodule in the right middle lobe. Recommend routine follow-up evaluation. 6. Small bilateral pleural effusions. 7. Small sliding-type gastric hiatal hernia. Electronically signed by: Dez Bradley On 05/29/2020 01:29:06 AM
[2020-05-29 02:15] VITALS: BP 147/66
[2020-05-29] MEDS ORDERED: PRED20TA PO (02:15)
[2020-05-29] MEDS ORDERED: LevoFLOXacin 750 MG TABLET PO ONE (02:15)
[2020-05-29] MEDS ORDERED: LEVA750T7 PO (02:15)
--- NOTE | 2020-05-30 08:21 | ECGEPIP ---
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
--- NOTE | 2020-05-30 12:47 | ED PDOC ---
Post-Departure Follow-Up cxr also faxed to Ryan Means MD May 30, 2020 12:47
--- NOTE | 2020-05-30 12:47 | ED PDOC ---
Post-Departure Follow-Up kraig cullen faxed formal report of ct abd/p for fu Ryan Smart MD May 30, 2020 12:47
== END 2020-05-29 02:41 | disposition home or self-care (01) ==
LOC: M ED 17:08
DX: J18.9 Pneumonia, unspecified organism (principal); I45.10 Unspecified right bundle-branch block; R91.8 Other nonspecific abnormal finding of lung field; I10 Essential (primary) hypertension; J44.9 Chronic obstructive pulmonary disease, unspecified; D68.51 Activated protein C resistance; Z79.899 Other long term (current) drug therapy
CPT/HCPCS: 71045; 71275; 80048; 80076; 82550; 82553; 83880; 84484; 85025; 87040; 87486; 87581; 87633; 87798; 93005; 93041; 94640; 94760; 96374; 99285; J2930; Q9967

== ENCOUNTER → 2020-09-06 | Outpatient (CLI) | payer MEDICARE, BC ==
[~2020-09-06] MED LIST changes: +ACAR50TA3 PO; +ALLO10TA PO; +LEVA750T7 PO; +POTA10CA32 PO; +ROSU40TA4 PO
--- NOTE | 2020-09-07 07:11 | REP ---
INDICATION: PULMONARY NODULE COMPARISON: None TECHNIQUE: Axial noncontrast images from the thoracic inlet to the upper abdomen with coronal and sagittal reformations. This CT examination was performed using the following dose reduction techniques: Automated exposure control, adjustment of mA and/or kv according to the patient's size, and use of iterative reconstruction technique. FINDINGS: The bilateral lung james are well aerated. Current examination demonstrates moderate chronic appearing fibroatelectatic changes at the bilateral bases with mild elements of basilar bronchiectasis. Previously noted consolidations/effusions and small nodular densities have essentially resolved. A small 2 mm perifissural nodule adjacent to the right major fissure (series 201; image 68) remains stable and is likely chronic. No acute consolidation, suspicious nodule or mass lesion. No effusion. No pneumothorax. Tracheobronchial tree is patent. Mediastinum without evidence for adenopathy. Atherosclerotic changes to the thoracic aorta and coronary arteries noted without aortic aneurysm or cardiomegaly. No pericardial effusion. Surrounding musculoskeletal structures are intact. IMPRESSION: 1. Previously noted areas of consolidation/effusion and scattered nodules have essentially resolved. [id number] residual chronic appearing fibroatelectatic changes and bronchiectasis at the bilateral bases (left greater than right) now identified. 2. No new acute mediastinal or pleuroparenchymal process. 3. No suspicious nodule or mass. <Electronically signed by Feliberto Walker > 09/07/20 [id number]
== END ==
LOC: M RAD 15:24
PROVIDERS: ATTEND Family Medicine
DX: R91.1 Solitary pulmonary nodule (principal)

== ENCOUNTER → 2020-09-20 | Outpatient (CLI) | payer MEDICARE, BC ==
[2020-09-22 00:09] LABS: PSA TOTAL 1.5 ng/mL (0.0-4.0)
== END ==
LOC: M LAB 10:40
PROVIDERS: ATTEND Nurse Practitioner Adult Health
DX: N42.9 Disorder of prostate, unspecified (principal)

== ENCOUNTER 2021-02-23 01:07 | Emergency (ER) | payer MEDICARE, BC ==
[~2021-02-23] VITALS: Ht 180.3 cm; Wt 130.9 kg
[2021-02-23 01:18] VITALS: BP 178/75
[2021-02-23] MEDS ORDERED: COMBIVENT RESPIMAT 100-20MCG INHALER 4GM INH ONE (02:00)
[2021-02-23] MEDS ORDERED: FAMOTIDINE IV BAG 20 MG in IV 1 EA IV ONE (02:00)
[2021-02-23] MEDS ORDERED: dexameTHASONE 20MG/5ML VIAL (J1100 PER 1MG) IV ONE (02:00)
[2021-02-23 02:24] LABS: ALBUMIN 3.4 GM/DL (3.2-5.2); ALT/SGPT 33 U/L (12-78); BILIRUBIN,DIRECT 0.1 MG/DL (0.0-0.2); BILIRUBIN,TOTAL 0.4 MG/DL (0.2-1.0); BLOOD UREA NITROGEN 19 MG/DL (7-18); CALCIUM LEVEL 8.8 MG/DL (8.8-10.2); CARBON DIOXIDE LEVEL 24 MEQ/L (21-32); CHLORIDE LEVEL 107 MEQ/L (98-107); CK-MB VALUE MASS < 1.0 NG/ML (<3.6); CPK CREATINE PHOSPHOKINASE 73 U/L (39-308); CREATININE FOR GFR 0.97 MG/DL (0.70-1.30); GLOMERULAR FILTRATION RATE > 60.0 (>42); GLUCOSE, FASTING 136 MG/DL (70-100); MB/CK RELATIVE INDEX 1.37 (< OR =4); NT-PRO BNP 347 PG/ML (<125); SODIUM LEVEL 141 MEQ/L (136-145); TOTAL PROTEIN 7.2 GM/DL (6.4-8.2); TROPONIN I 0.05 NG/ML (< 0.10)
[2021-02-23 02:25] LABS: BASO % 0.4 % (0.0-1.0); EOS # 0.4 10^3/uL (0.0-0.5); EOS % 3.3 % (0.0-3.0); HEMATOCRIT 43.8 % (42.0-52.0); HEMOGLOBIN 13.5 g/dl (13.5-17.5); LYMPH # 2.3 10^3/uL (1.5-5.0); LYMPH % 21.6 % (24.0-44.0); MEAN CORPUSCULAR HEMOGLOBIN 26.9 pg (27.0-33.0); MEAN CORPUSCULAR HGB CONC 30.8 g/dl (32.0-36.5); MEAN CORPUSCULAR VOLUME 87.4 fl (80.0-96.0); MONO # 0.9 10^3/uL (0.0-0.8); MONO % 8.2 % (2.0-8.0); NEUTROPHILS % 65.3 % (36.0-66.0); PLATELET COUNT, AUTOMATED 141 10^3/uL (150-450); RED BLOOD COUNT 5.01 10^6/uL (4.30-6.10); WHITE BLOOD COUNT 10.8 10^3/uL (4.0-10.0)
--- NOTE | 2021-02-23 03:46 | REPVR ---
PROCEDURE INFORMATION: Exam: US Duplex Lower Extremity Veins, Bilateral Exam date and time: 02/23/2021 2:26 AM Age: 76 years old Clinical indication: Swelling (edema) of limb; Lower extremity, bilateral; Additional info: Assymetrical swelling TECHNIQUE: Imaging protocol: Real-time duplex ultrasound of the extremities with 2-D pritchard scale, color Doppler flow and spectral waveform analysis with image documentation. Complete exam focused on the bilateral lower extremity veins. COMPARISON: US Duplex, Ext,LOWER veins,unilat 01/20/2019 2:59 PM FINDINGS: Right deep veins: The common femoral, femoral, proximal profunda femoral and popliteal veins are patent without thrombus. Normal compressibility and/or augmentation response. Right superficial veins: Saphenofemoral junction is patent without thrombus. Left deep veins: The common femoral, femoral, proximal profunda femoral and popliteal veins are patent without thrombus. Normal compressibility and/or augmentation response. Left superficial veins: Saphenofemoral junction is patent without thrombus. Soft tissues: Unremarkable. IMPRESSION: No evidence of deep venous thrombosis from the common femoral to the popliteal veins bilaterally. Electronically signed by: Jorge Luis Cavanaugh On 02/23/2021 03:46:02 AM
--- NOTE | 2021-02-23 03:51 | REPVR ---
PROCEDURE INFORMATION: Exam: XR Chest Exam date and time: 02/23/2021 2:41 AM Age: 76 years old Clinical indication: Other: Dyspnea/cough TECHNIQUE: Imaging protocol: XR of the chest. Views: 1 view. COMPARISON: CT Chest without contrast 09/06/2020 3:38 PM FINDINGS: Lungs: Bibasilar atelectatic change/infiltrates visualized. Pleural spaces: Mild bilateral pleural thickening or effusions. Heart/Mediastinum: The cardiac silhouette appears enlarged. There is thickening of the right paratracheal stripe, although this can be contributed by patient rotation. Bones/joints: Hypertrophic degenerative changes are noted involving the spine. IMPRESSION: 1. The cardiac silhouette appears enlarged. 2. Bibasilar atelectatic change/infiltrates visualized. 3. There is thickening of the right paratracheal stripe, although this can be contributed by patient rotation. 4. Mild bilateral pleural thickening or effusions. 5. Follow-up radiographs and possible chest CT recommended, as clinically indicated. Electronically signed by: Jorge Luis Cavanaugh On 02/23/2021 03:51:18 AM
[2021-02-23] MEDS ORDERED: LevoFLOXacin 750 MG TABLET PO ONE (04:50)
[2021-02-23] MEDS ORDERED: LEVO750T14 PO (04:53)
--- NOTE | 2021-02-23 06:19 | ECGEPIP ---
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
--- NOTE | 2021-02-23 06:30 | ED PDOC ---
Post-Departure Follow-Up cxr formal report faxed to kraig cullen for harinder conrad Maja MD Feb 23, 2021 06:30
== END 2021-02-23 05:09 | disposition home or self-care (01) ==
LOC: M ED 01:07
DX: R06.02 Shortness of breath (principal); T36.1X5A Adverse effect of cephalosporins and other beta-lactam antibiotics, initial encounter; J18.9 Pneumonia, unspecified organism; E11.9 Type 2 diabetes mellitus without complications; I10 Essential (primary) hypertension; J44.9 Chronic obstructive pulmonary disease, unspecified; J45.909 Unspecified asthma, uncomplicated; G47.33 Obstructive sleep apnea (adult) (pediatric); Z88.1 Allergy status to other antibiotic agents; Z88.6 Allergy status to analgesic agent; Z79.899 Other long term (current) drug therapy
CPT/HCPCS: 71045; 80048; 80076; 82550; 82553; 83880; 84443; 84484; 85025; 93005; 93041; 93970; 94640; 94760; 96365; 96375; 99284; J1100

== ENCOUNTER → 2021-04-29 | Outpatient (CLI) | payer MEDICARE, BC ==
[~2021-04-29] MED LIST changes: +LEVO750T14 PO
== END ==
LOC: M LAB 14:07
PROVIDERS: ATTEND Nurse Practitioner Adult Health
DX: N42.9 Disorder of prostate, unspecified (principal)

== ENCOUNTER → 2021-06-06 | Outpatient (CLI) | payer MEDICARE, BC ==
[2021-06-06 12:30] LABS: BASO # 0.1 10^3/uL (0.0-0.2); BASO % 0.8 % (0.0-1.0); EOS # 0.7 10^3/uL (0.0-0.5); EOS % 7.3 % (0.0-3.0); HEMATOCRIT 36.4 % (42.0-52.0); HEMOGLOBIN 12.4 g/dl (13.5-17.5); LYMPH # 2.7 10^3/uL (1.5-5.0); LYMPH % 30.8 % (24.0-44.0); MEAN CORPUSCULAR HEMOGLOBIN 30.3 pg (27.0-33.0); MEAN CORPUSCULAR HGB CONC 34.1 g/dl (32.0-36.5); MONO # 0.8 10^3/uL (0.0-0.8); MONO % 9.4 % (2.0-8.0); NEUTROPHILS # 4.5 10^3/uL (1.5-8.5); NEUTROPHILS % 50.9 % (36.0-66.0); RED BLOOD COUNT 4.09 10^6/uL (4.30-6.10); WHITE BLOOD COUNT 8.9 10^3/uL (4.0-10.0)
[2021-06-06 12:59] LABS: ALBUMIN 3.1 GM/DL (3.2-5.2); ALT/SGPT 29 U/L (12-78); BILIRUBIN,TOTAL 0.3 MG/DL (0.2-1.0); BLOOD UREA NITROGEN 20 MG/DL (7-18); CALCIUM LEVEL 8.6 MG/DL (8.8-10.2); CARBON DIOXIDE LEVEL 25 MEQ/L (21-32); CHLORIDE LEVEL 109 MEQ/L (98-107); CREATININE FOR GFR 1.01 MG/DL (0.70-1.30); GLOMERULAR FILTRATION RATE > 60.0 (>42); GLUCOSE, FASTING 133 MG/DL (70-100); POTASSIUM SERUM 4.2 MEQ/L (3.5-5.1); SODIUM LEVEL 140 MEQ/L (136-145); TOTAL PROTEIN 6.6 GM/DL (6.4-8.2)
[2021-06-06 13:08] LABS: PLATELET COUNT, AUTOMATED 82 10^3/uL (150-450)
== END ==
LOC: M LAB 11:37
PROVIDERS: ATTEND Family Medicine
DX: D64.9 Anemia, unspecified (principal); I10 Essential (primary) hypertension; Z79.899 Other long term (current) drug therapy

== ENCOUNTER → 2021-10-29 | Outpatient (CLI) | payer MEDICARE, BC ==
[~2021-10-29] MED LIST changes: +TRAM300T5 PO; -TRAM300T9 PO
== END ==
LOC: M LAB 11:25
PROVIDERS: ATTEND Nurse Practitioner Adult Health
DX: R97.20 Elevated prostate specific antigen [PSA] (principal)

== ENCOUNTER → 2021-12-18 | Outpatient (CLI) | payer MEDICARE, BC ==
[2021-12-18 16:08] LABS: BLOOD UREA NITROGEN 23 MG/DL (7-18); GLOMERULAR FILTRATION RATE > 60.0 (>42)
== END ==
LOC: M LAB 15:24
PROVIDERS: ATTEND Physician Assistant Medical
DX: R22.1 Localized swelling, mass and lump, neck (principal)

== ENCOUNTER → 2022-01-06 | Outpatient (CLI) | payer MEDICARE, BC ==
[~2022-01-06] MED LIST changes: +ISOVUE-370 76% 100ML VIAL As Ordered ONE
== END ==
LOC: M RAD 14:39
PROVIDERS: ATTEND Physician Assistant Medical
DX: R22.1 Localized swelling, mass and lump, neck (principal)
CPT/HCPCS: 70491; Q9967

== ENCOUNTER → 2022-04-29 | Outpatient (CLI) | payer MEDICARE, BC ==
[~2022-04-29] MED LIST changes: -ISOVUE-370 76% 100ML VIAL As Ordered ONE
== END ==
LOC: M LAB 14:21
PROVIDERS: ATTEND Nurse Practitioner Adult Health
DX: N42.9 Disorder of prostate, unspecified (principal)

== ENCOUNTER 2022-10-02 09:53 | Emergency (ER) | payer MEDICARE, BC ==
[~2022-10-02] VITALS: Ht 176.5 cm; Wt 126.9 kg
[~2022-10-02 09:53] MED LIST changes: -POTA10CA32 PO; +POTA10CA33 PO
[2022-10-02] MEDS ORDERED: OCUVTAB4 PO (10:07)
[2022-10-02] MEDS ORDERED: FURO20TA2 (10:07)
[2022-10-02] MEDS ORDERED: ONDANSETRON 4MG 2ML VIAL IV ONE (10:55)
[2022-10-02] MEDS ORDERED: GI COCKTAIL 50ML BTL(HYOSCYAMINE/MAALOX/LIDOCAINE VISCOUS)(1:3:1) PO ONE (10:55)
[2022-10-02] MEDS ORDERED: SUCRALFATE 1 GM TAB PO ONE (10:55)
[2022-10-02] MEDS ORDERED: PANTOPRAZOLE 40MG VIAL IV ONE (10:55)
[2022-10-02] MEDS ORDERED: NS 1,000 ML IV ONE (10:55)
[2022-10-02 11:22] LABS: BASO % 0.5 % (0.0-1.0); EOS # 0.3 10^3/uL (0.0-0.5); EOS % 4.1 % (0.0-3.0); HEMATOCRIT 35.8 % (42.0-52.0); HEMOGLOBIN 11.4 g/dl (13.5-17.5); LYMPH # 2.1 10^3/uL (1.5-5.0); LYMPH % 26.6 % (24.0-44.0); MEAN CORPUSCULAR HEMOGLOBIN 27.3 pg (27.0-33.0); MEAN CORPUSCULAR HGB CONC 31.8 g/dl (32.0-36.5); MEAN CORPUSCULAR VOLUME 85.9 fl (80.0-96.0); MONO # 0.6 10^3/uL (0.0-0.8); MONO % 6.8 % (2.0-8.0); NEUTROPHILS % 61.6 % (36.0-66.0); PLATELET COUNT, AUTOMATED 107 10^3/uL (150-450); RED BLOOD COUNT 4.17 10^6/uL (4.30-6.10); WHITE BLOOD COUNT 8.1 10^3/uL (4.0-10.0)
[2022-10-02] MEDS ORDERED: ISOVUE-370 76% 100ML VIAL As Ordered ONE (11:22)
[2022-10-02 11:51] LABS: ALBUMIN 3.5 G/DL (3.2-5.2); BILIRUBIN,DIRECT 0.1 MG/DL (<0.4); BILIRUBIN,TOTAL 0.5 MG/DL (0.3-1.2); TOTAL PROTEIN 6.5 G/DL (5.7-8.2)
[2022-10-02] MEDS ORDERED: CARA1TAB6 PO (12:43)
[2022-10-02] MEDS ORDERED: OMEP40CA4 PO (12:43)
[2022-10-02 12:57] VITALS: BP 135/72
== END 2022-10-02 13:00 | disposition home or self-care (01) ==
LOC: M ED 09:53
DX: R10.9 Unspecified abdominal pain (principal); E11.9 Type 2 diabetes mellitus without complications; E78.5 Hyperlipidemia, unspecified; J45.909 Unspecified asthma, uncomplicated; R51.9 Headache, unspecified; Z79.51 Long term (current) use of inhaled steroids; Z79.83 Long term (current) use of bisphosphonates; Z79.810 Long term (current) use of selective estrogen receptor modulators (SERMs); Z79.899 Other long term (current) drug therapy
CPT/HCPCS: 74177; 80047; 80076; 83690; 85025; 96374; 96375; 99284; C9113; J2405; Q9967

== ENCOUNTER → 2023-03-25 | Outpatient (CLI) | payer MEDICARE, BC ==
[~2023-03-25] MED LIST changes: +CARA1TAB6 PO; +FURO20TA2; +OCUVTAB4 PO; +OMEP40CA4 PO; -POTA10CA33 PO; +POTA10CA60 PO
== END ==
LOC: M LAB 13:50
PROVIDERS: ATTEND Nurse Practitioner Adult Health
DX: R97.20 Elevated prostate specific antigen [PSA] (principal)

== ENCOUNTER 2024-06-12 11:00 | Emergency (ER) | payer MEDICARE, BC ==
[~2024-06-12] VITALS: Ht 175.3 cm; Wt 117.8 kg
[~2024-06-12 11:00] MED LIST changes: -POTA10CA60 PO; +POTA10CA70 PO; -ROSU40TA4 PO; +ROSU40TA81 PO
[2024-06-12 12:28] LABS: BASO % 0.5 % (0.0-1.0); EOS # 0.4 10^3/uL (0.0-0.5); EOS % 4.1 % (0.0-3.0); HEMATOCRIT 39.2 % (42.0-52.0); LYMPH # 2.2 10^3/uL (1.5-5.0); LYMPH % 24.7 % (24.0-44.0); MEAN CORPUSCULAR HEMOGLOBIN 29.1 pg (27.0-33.0); MEAN CORPUSCULAR HGB CONC 33.2 g/dl (32.0-36.5); MEAN CORPUSCULAR VOLUME 87.7 fl (80.0-96.0); MONO # 0.7 10^3/uL (0.0-0.8); NEUTROPHILS # 5.4 10^3/uL (1.5-8.5); NEUTROPHILS % 62.1 % (36.0-66.0); PLATELET COUNT, AUTOMATED 107 10^3/uL (150-450); RED BLOOD COUNT 4.47 10^6/uL (4.30-6.10); WHITE BLOOD COUNT 8.7 10^3/uL (4.0-10.0)
[2024-06-12 13:00] LABS: LIPASE 25 U/L (12-53)
[2024-06-12 13:01] LABS: ALBUMIN 3.6 G/DL (3.2-5.2); ALKALINE PHOSPHATASE 82 U/L (46-116); ALT/SGPT 53 U/L (7.0-40); AST/SGOT 28 U/L (<34); BILIRUBIN,DIRECT 0.2 MG/DL (<0.4); BILIRUBIN,TOTAL 0.5 MG/DL (0.3-1.2); BLOOD UREA NITROGEN 18 MG/DL (9-23); CALCIUM LEVEL 9.5 MG/DL (8.3-10.6); CARBON DIOXIDE LEVEL 26 MMOL/L (20-31); CHLORIDE LEVEL 108 MMOL/L (98-107); CREATININE FOR GFR 0.76 MG/DL (0.70-1.30); GLOMERULAR FILTRATION RATE > 60.0 (>42); GLUCOSE, FASTING 110 MG/DL (74-106); POTASSIUM SERUM 4.2 MMOL/L (3.5-5.1); SODIUM LEVEL 140 MMOL/L (136-145)
[2024-06-12] MEDS ORDERED: ISOVUE-370 76% 100ML VIAL As Ordered ONE (13:53)
[2024-06-12 15:39] VITALS: BP 128/71; TEMP 97; O2SAT 97
== END 2024-06-12 15:41 | disposition home or self-care (01) ==
LOC: M ED 11:00
DX: K57.30 Diverticulosis of large intestine without perforation or abscess without bleeding (principal); R19.7 Diarrhea, unspecified; E11.9 Type 2 diabetes mellitus without complications; I10 Essential (primary) hypertension; K21.9 Gastro-esophageal reflux disease without esophagitis; F41.9 Anxiety disorder, unspecified; D64.9 Anemia, unspecified; D68.51 Activated protein C resistance; Z88.1 Allergy status to other antibiotic agents; Z88.5 Allergy status to narcotic agent; Z88.8 Allergy status to other drugs, medicaments and biological substances; Z79.52 Long term (current) use of systemic steroids; Z79.811 Long term (current) use of aromatase inhibitors; Z79.899 Other long term (current) drug therapy
CPT/HCPCS: 36415; 74177; 80048; 80076; 83690; 85025; 99284; Q9967

== ENCOUNTER → 2024-06-13 | Outpatient (REF) | payer MEDICARE, BC | LOC: M LAB REF 11:49 | PROVIDERS: ATTEND Registered Nurse | DX: R19.7 Diarrhea, unspecified (principal) ==

== ENCOUNTER 2024-12-02 14:51 | Emergency (ER) | payer MEDICARE, BC ==
[~2024-12-02] VITALS: Ht 175.3 cm; Wt 128.3 kg
[~2024-12-02 14:51] MED LIST changes: -ADV250INH INH; -ADV500INH INH; +ADVA1AER10 INH; +ADVA1AER9 INH; -LEVO750T14 PO; +LEVO75TAB PO
[2024-12-02 17:25] VITALS: BP 145/82; TEMP 97.8; O2SAT 97
== END 2024-12-02 17:27 | disposition home or self-care (01) ==
LOC: M ED 14:51
DX: S80.12XA Contusion of left lower leg, initial encounter (principal); W22.09XA Striking against other stationary object, initial encounter; J45.909 Unspecified asthma, uncomplicated; E11.9 Type 2 diabetes mellitus without complications; F43.10 Post-traumatic stress disorder, unspecified; Y92.009 Unspecified place in unspecified non-institutional (private) residence as the place of occurrence of the external cause; Y93.89 Activity, other specified; Y99.9 Unspecified external cause status; Z87.891 Personal history of nicotine dependence; Z88.1 Allergy status to other antibiotic agents; Z88.5 Allergy status to narcotic agent; Z88.8 Allergy status to other drugs, medicaments and biological substances; Z79.52 Long term (current) use of systemic steroids; Z79.899 Other long term (current) drug therapy

== ENCOUNTER → 2024-12-22 | Outpatient (CLI) | payer MEDICARE, BC | LOC: M RAD 15:09 | PROVIDERS: ATTEND Student in an Organized Health Care Education/Training Program | DX: M79.605 Pain in left leg (principal) ==

== ENCOUNTER 2025-07-31 01:54 | Emergency (ER) | payer MEDICARE, BC ==
[~2025-07-31] VITALS: Ht 182.9 cm; Wt 122.7 kg
[~2025-07-31 01:54] MED LIST changes: -PRAV40TA2 PO; +PRAV40TA85 PO
[2025-07-31] MEDS: ONDANSETRON 4MG/2ML VIAL IV ONE (02:15)
[2025-07-31] MEDS: KETOROLAC 30 MG/ML 1 ML VIAL IV ONE (02:15)
[2025-07-31] MEDS: NS 500 ML IV ONE (02:15)
[2025-07-31 02:19] LABS: BASO # 0.0 10^3/uL (0.0-0.2); BASO % 0.2 % (0.0-1.0); EOS # 0.3 10^3/uL (0.0-0.5); EOS % 1.9 % (0.0-3.0); LYMPH # 2.1 10^3/uL (1.5-5.0); LYMPH % 12.9 % (24.0-44.0); MONO # 1.3 10^3/uL (0.0-0.8); MONO % 7.7 % (2.0-8.0); NEUTROPHILS # 12.6 10^3/uL (1.5-8.5); NEUTROPHILS % 76.8 % (36.0-66.0); PLATELET COUNT, AUTOMATED 126 10^3/uL (150-450)
[2025-07-31] MEDS: NS (Normal Saline) 0.9% 1,000 ML IV ONE (03:04)
[2025-07-31 03:58] LABS: ALT/SGPT 36.0 U/L (7.0-40); AST/SGOT 47.0 U/L (<34); CALCIUM LEVEL 8.8 MG/DL (8.3-10.6); CARBON DIOXIDE LEVEL 21.0 MMOL/L (20-31); CHLORIDE LEVEL 103.0 MMOL/L (98-107); CK-MB VALUE MASS 2.0 NG/ML (<3.6); CPK CREATINE PHOSPHOKINASE 93.0 U/L (46-171); CREATININE FOR GFR 0.94 MG/DL (0.70-1.30); GLOMERULAR FILTRATION RATE 83.0 (>42); MB/CK RELATIVE INDEX 2.15 (< OR =4); POTASSIUM SERUM 4.7 MMOL/L (3.5-5.1); SODIUM LEVEL 137.0 MMOL/L (136-145)
[2025-07-31] MEDS ORDERED: ISOVUE-370 76% 100 ML VIAL As Ordered ONE (04:22)
[2025-07-31 05:00] VITALS: BP 138/66; TEMP 97.3; O2SAT 97
[2025-07-31] MEDS ORDERED: ONDA-282 PO (05:09)
== END 2025-07-31 05:28 | disposition home or self-care (01) ==
LOC: EDBD 01:54 → M ED 01:54
DX: K52.9 Noninfective gastroenteritis and colitis, unspecified (principal); K44.9 Diaphragmatic hernia without obstruction or gangrene; K57.30 Diverticulosis of large intestine without perforation or abscess without bleeding; I45.10 Unspecified right bundle-branch block; I49.3 Ventricular premature depolarization; I44.4 Left anterior fascicular block; I45.2 Bifascicular block; I10 Essential (primary) hypertension; K21.9 Gastro-esophageal reflux disease without esophagitis; F41.9 Anxiety disorder, unspecified; E78.5 Hyperlipidemia, unspecified; Z86.79 Personal history of other diseases of the circulatory system; Z88.1 Allergy status to other antibiotic agents; Z88.8 Allergy status to other drugs, medicaments and biological substances; Z88.5 Allergy status to narcotic agent; Z79.52 Long term (current) use of systemic steroids; Z79.899 Other long term (current) drug therapy
CPT/HCPCS: 74177; 80048; 80076; 82550; 82553; 83605; 83690; 84145; 84484; 85025; 87486; 87507; 87581; 87633; 87798; 93005; 96360; 96361; 96375; 99284; J1885; J2405; Q9967